=== PATIENT | female | born 1970 | race American Indian/Alaskan Native ===

== ENCOUNTER 2020-03-02 00:36 | Emergency (ER) | payer SELFPAY ==
[2020-03-02 00:49] VITALS: BP 138/91
[2020-03-02] MEDS ORDERED: oxyCODONE /ACETAMINOPHEN 5-325MG TAB PO ONE (02:27)
[2020-03-02] MEDS ORDERED: ONDANSETRON 4 MG ODT TAB PO ONE (02:27)
[2020-03-02] MEDS ORDERED: predniSONE 20 MG TAB PO ONE (02:27)
[2020-03-02] MEDS ORDERED: CLINDAMYCIN 300 MG CAP PO ONE (02:27)
--- NOTE | 2020-03-02 02:29 | Emergency Department Report ---
ED General Adult HPI - General Chief complaint: Dental/Oral Stated complaint: MOUTH ABCESS Source: patient Mode of arrival: Ambulatory Limitations: No Limitations - History of Present Illness Initial comments: Patient is a 49-year-old -[place] female with a history of hypertension, breast cancer on the right breast and fat-ivmudjq-bipzxvzfn diabetes who presents to the ED with complaint of acute onset persistent painful swollen right mandibular gingiva and severe pain on the right mandibular premolar and molar teeth for the last 5 days. Patient states that she was evaluated by her primary care physician 3 days ago and given a prescription for amoxicillin 500 mg. Patient states that she has been taking this medication but that in the last 24 hours, the pain and the swelling have worsened such that she has not been able to sleep and that the pain radiates to the right ear. Patient states that she has been taking uljv-gro-[id number] medications for pain with no relief. Patient denies dizziness, syncope, chest pain, shortness of breath, sore throat, fever, chills, nausea, or vomiting and abdominal pain. MD Complaint: right maxillary gum swelling with premolar and molar toothache; ear pain -: Sudden, days(s) (5) Location: face Radiation: non-radiation Severity scale (0 -10): 8 Quality: aching, sharp Consistency: constant Improves with: none Worsens with: eating Associated Symptoms: denies other symptoms, malaise. denies: confusion, chest pain, cough, diaphoresis, fever/chills, headaches, loss of appetite, nausea/vomiting, rash, seizure, shortness of breath, syncope, weakness Treatments Prior to Arrival: none - Related Data Previous Rx's Medication Instructions Recorded Last Taken Type Benzonatate [Tessalon Perles] 100 mg PO Q8HR #20 capsule 11/10/19 Unknown Rx Acetaminophen/Codeine [Tylenol 1 tab PO Q6H PRN #10 tab 03/02/20 Unknown Rx /Codeine # 3 tab] Clindamycin [Clindamycin CAP] 300 mg PO Q8HR #60 capsule 03/02/20 Unknown Rx Ketorolac [Toradol] 10 mg PO Q8H PRN #20 tablet 03/02/20 Unknown Rx Allergies Allergy/AdvReac Type Severity Reaction Status Date / Time No Known Allergies Allergy Unverified 11/10/19 11:23 ED Review of Systems ROS: Stated complaint: MOUTH ABCESS Other details as noted in HPI Constitutional: denies: chills, fever Eyes: denies: eye pain, eye discharge, vision change ENT: ear pain (Right ear pain), dental pain (Right mandibular premolar molar toothache with swollen gums). denies: throat pain Respiratory: denies: cough, shortness of breath, wheezing Cardiovascular: denies: chest pain, palpitations Endocrine: no symptoms reported Gastrointestinal: denies: abdominal pain, nausea, diarrhea Genitourinary: denies: urgency, dysuria, discharge Musculoskeletal: denies: back pain, joint swelling, arthralgia Skin: denies: rash, lesions Neurological: headache. denies: weakness, paresthesias Psychiatric: denies: anxiety, depression Hematological/Lymphatic: denies: easy bleeding, easy bruising ED Past Medical Hx - Past Medical History Previous Medical History?: Yes Hx Hypertension: Yes Hx Diabetes: Yes Hx of Cancer: Yes (Right breast Cancer) Additional medical history: proteinuria, breast mass - Surgical History Past Surgical History?: Yes Hx Cholecystectomy: Yes Hx Appendectomy: Yes Additional Surgical History: hysterectomy - Social History Smoking Status: Never Smoker Substance Use Type: None - Medications Home Medications: Home Medications Medication Instructions Recorded Confirmed Last Taken Type Benzonatate [Tessalon Perles] 100 mg PO Q8HR #20 capsule 11/10/19 Unknown Rx Acetaminophen/Codeine [Tylenol 1 tab PO Q6H PRN #10 tab 03/02/20 Unknown Rx /Codeine # 3 tab] Clindamycin [Clindamycin CAP] 300 mg PO Q8HR #60 capsule 03/02/20 Unknown Rx Ketorolac [Toradol] 10 mg PO Q8H PRN #20 tablet 03/02/20 Unknown Rx ED Physical Exam - General Limitations: No Limitations General appearance: alert, in no apparent distress - Head Head exam: Present: atraumatic, normocephalic, normal inspection - Eye Eye exam: Present: normal appearance, PERRL, EOMI Pupils: Present: normal accommodation - ENT ENT exam: Present: mucous membranes moist, TM's normal bilaterally, normal external ear exam, other (Swollen, severely tender right mandibular gingiva; also severely tender right mandibular premolar molar teeth) - Neck Neck exam: Present: normal inspection - Respiratory Respiratory exam: Present: normal lung sounds bilaterally. Absent: respiratory distress, wheezes, rales, rhonchi, chest wall tenderness, accessory muscle use, decreased breath sounds, prolonged expiratory - Cardiovascular Cardiovascular Exam: Present: regular rate, normal rhythm, normal heart sounds. Absent: systolic murmur, diastolic murmur, rubs, gallop - GI/Abdominal GI/Abdominal exam: Present: soft, normal bowel sounds. Absent: tenderness, guarding, hyperactive bowel sounds, hypoactive bowel sounds - Extremities Exam Extremities exam: Present: normal inspection, full ROM, normal capillary refill - Back Exam Back exam: Present: normal inspection, full ROM. Absent: tenderness, CVA tenderness (R), muscle spasm, paraspinal tenderness, vertebral tenderness - Neurological Exam Neurological exam: Present: alert, oriented X3, CN II-XII intact, normal gait, reflexes normal - Psychiatric Psychiatric exam: Present: normal affect, normal mood - Skin Skin exam: Present: warm, dry, intact, normal color. Absent: rash ED Course Vital Signs 03/02/20 00:42 Temperature 98.1 F Pulse Rate 92 H Respiratory 20 Rate Blood Pressure 138/91 O2 Sat by Pulse 99 Oximetry ED Medical Decision Making - Medical Decision Making This is a 49-year-old -[place] female with a history of hypertension, breast cancer on the right breast and mqs-fddwzhm-iitfqneog diabetes who prese nts to the ED with complaint of acute onset persistent painful swollen right mandibular gingiva and severe pain on the right mandibular premolar and molar teeth for the last 5 days. Patient states that she was evaluated by her primary care physician 3 days ago and given a prescription for amoxicillin 500 mg. Patient states that she has been taking this medication but that in the last 24 hours, the pain and the swelling have worsened such that she has not been able to sleep and that the pain radiates to the right ear. Patient states that she has been taking fnfi-[id number]-[id number] medications for pain with no relief. In the ED, patient is alert and oriented x3 and is not in distress but appears to be in significant pain. Patient was treated for pain in the ED and also given initial oral antibiotics in the ED. On reevaluation, patient's pain is well controlled with medications. Patient was discharged home on pain medications and oral antibiotics and advised to stop the amoxicillin that she had been taking and to start taking clindamycin the new instructions. Patient was advised to follow-up with her dentist and primary care physician in 7 to 10 days for reevaluation or return to the ED immediately if symptoms get worse. - Differential Diagnosis dental abscess; dental caries; gingivitis; Otitis media Critical care attestation.: If time is entered above; I have spent that time in minutes in the direct care of this critically ill patient, excluding procedure time. ED Disposition Clinical Impression: Acute gingivitis, Abscess, dental, Dental caries Disposition: TO HOME OR SELFCARE Is pt being admited?: No Does the pt Need Aspirin: No Condition: Stable Instructions: Dental Abscess (ED), Dental Caries (ED), Gingivitis (ED) Additional Instructions: Take medication with food, drink plenty of fluids and follow-up with your primary care physician in 7 to 10 days for reevaluation. Return to the ED immediately if symptoms get worse. Ensure that you follow-up with your dentist in 7 to 10 days as well. Prescriptions: Clindamycin [Clindamycin CAP] 300 mg PO Q8HR #60 capsule Ketorolac [Toradol] 10 mg PO Q8H PRN #20 tablet PRN Reason: Pain Acetaminophen/Codeine [Tylenol /Codeine # 3 tab] 1 tab PO Q6H PRN #10 tab PRN Reason: Pain , Severe (7-10) Referrals: [facility] [Outside] - 3-5 Days [facility] [Outside] - 3-5 Days Time of Disposition: 02:30 Print Language: MONTSERRATIAN
== END 2020-03-02 02:40 | disposition home or self-care (01) ==
LOC: ED 00:36
DX: K05.00 Acute gingivitis, plaque induced (principal); K02.9 Dental caries, unspecified; K04.7 Periapical abscess without sinus; I10 Essential (primary) hypertension; E11.9 Type 2 diabetes mellitus without complications; Z90.710 Acquired absence of both cervix and uterus; Z90.49 Acquired absence of other specified parts of digestive tract
CPT/HCPCS: 99282; J7512; Q0162

== ENCOUNTER 2020-05-04 03:39 | Emergency (ER) | payer MEDICAID ==
[2020-05-04] MEDS ORDERED: ASPIRIN 325 MG TAB PO ONE (04:03)
[2020-05-04] MEDS ORDERED: MORPHINE 4 MG/1 ML INJ IV ONE (04:50)
[2020-05-04] MEDS ORDERED: SODIUM CHLORIDE 0.9% 500 ML 500 ML IV ONE (04:50)
--- NOTE | 2020-05-04 04:52 | Event Note ---
Date: 05/04/20 Medical screening note: 50-year-old female, with a history of newly diagnosed breast cancer, follows at [place], supposed to start chemotherapy tomorrow, May 05, known metastatic disease, recently had a left thoracic port placed this past Tuesday, at [place], also reports a history of cholecystectomy, appendectomy, hysterectomy, medical history of hypertension and diabetes, resenting to the ER today with a complaint of nontraumatic right chest pain, neck pain, back pain, and sinus drainage. Check basic labs, EKG, x-ray of the neck, x-ray of the chest, give pain control, reassess. Vital Signs 05/04/20 03:57 Temperature 98.0 F Pulse Rate 101 H Respiratory 18 Rate Blood Pressure 155/94 O2 Sat by Pulse 99 Oximetry
--- NOTE | 2020-05-04 05:38 | XRay Report ---
CHEST 2 VIEWS INDICATION: cp. COMPARISON: 11/10/2019 FINDINGS: Support devices: Chest port in satisfactory position. Heart: Within normal limits. Lungs/Pleura: No acute air space or interstitial disease. No significant pleural effusion. IMPRESSION: No acute findings. Signer Name: Aren Khoury MD Signed: 05/04/2020 5:34 AM Workstation Name: [id number]
--- NOTE | 2020-05-04 05:40 | XRay Report ---
SOFT TISSUE NECK HISTORY: Neck pain. FINDINGS: Negative for prevertebral soft tissue swelling or significant soft tissue abnormality. Evaluation the bones demonstrates mild degenerative disc disease greatest at C5-C6. Signer Name: Aren Khoury MD Signed: 05/04/2020 5:35 AM Workstation Name: [id number]
[2020-05-04 06:22] LABS: Basophils # (Auto) 0.1 K/mm3 (0.0-0.1); Basophils % (Auto) 1.1 % (0.0-1.8); Eosinophils # (Auto) 0.3 K/mm3 (0.0-0.4); Eosinophils % (Auto) 4.3 % (0.0-4.3); Hematocrit 41.4 % (30.3-42.9); Hemoglobin 13.5 gm/dl (10.1-14.3); Lymphocytes % (Auto) 30.8 % (13.4-35.0); Mean Corpuscular HGB Conc 33 % (30-34); Mean Corpuscular Volume 84 fl (79-97); Monocytes # (Auto) 0.9 K/mm3 (0.0-0.8); Monocytes % (Auto) 13.5 % (0.0-7.3); Platelet Count 292 K/mm3 (140-440); Red Blood Count 4.92 M/mm3 (3.65-5.03); Red Cell Distribution Width 13.9 % (13.2-15.2)
[2020-05-04 06:42] LABS: BUN/Creatinine Ratio 18; Blood Urea Nitrogen 11 mg/dL (7-17); Calcium 9.6 mg/dL (8.4-10.2); Hemolysis Index 25
[2020-05-04 06:45] LABS: INR 0.99 (0.87-1.13)
[2020-05-04] MEDS ORDERED: ONDANSETRON 4 MG/2 ML INJ IV ONE (06:45)
[2020-05-04] MEDS ORDERED: MORPHINE 2 MG/1 ML INJ IV ONE (06:45)
--- NOTE | 2020-05-04 06:47 | Emergency Department Report ---
ED Chest Pain HPI - General Chief Complaint: Chest Pain Stated Complaint: CHEST/BACK PAIN/THROAT/EAR PAIN Time Seen by Provider: 05/04/20 06:26 Source: patient Mode of arrival: Ambulatory Limitations: No Limitations - History of Present Illness Initial Comments: 50-year-old female with a history of right breast cancer and recently placed port/1 round of chemotherapy, reports the onset of pleuritic chest pain yesterday which was gradual. She denies cough, fever and shortness of breath. She thinks that the illness began with sinus drainage which was bothering her throat. Chest pain seems to radiate to her throat and to her right upper back. She states that she has not had pain like this before. She has had no recent travel. She denies a family history or personal history of VTE. She does not complain of leg pain or swelling. She cannot describe the quality of the chest pain but states it is constant. MD Complaint: chest pain -: Gradual, hour(s) Onset: during rest Pain Location: right chest Pain Radiation: back Severity: moderate Severity scale (0 -10): 7 Quality: other (Would not describe) Consistency: constant Improves With: nothing Worsens With: nothing Context: other (Recent port placement) re: denies: nausea, vomting, diaphoresis Other Symptoms: denies: cough, fever, syncope Treatments Prior to Arrival: none - Related Data Previous Rx's Medication Instructions Recorded Last Taken Type Benzonatate [Tessalon Perles] 100 mg PO Q8HR #20 capsule 11/10/19 Unknown Rx Acetaminophen/Codeine [Tylenol 1 tab PO Q6H PRN #10 tab 03/02/20 Unknown Rx /Codeine # 3 tab] Clindamycin [Clindamycin CAP] 300 mg PO Q8HR #60 capsule 03/02/20 Unknown Rx Ketorolac [Toradol] 10 mg PO Q8H PRN #20 tablet 03/02/20 Unknown Rx Azithromycin 500 mg PO DAILY #1 pkg 05/04/20 Unknown Rx traMADoL [Ultram 50 MG tab] 50 mg PO Q6HR PRN #14 tablet 05/04/20 Unknown Rx Allergies Allergy/AdvReac Type Severity Reaction Status Date / Time No Known Allergies Allergy Verified 05/04/20 06:28 Heart Score - HEART Score History: Slightly suspicious EKG: Normal Age: 45-65 Risk factors: 1-2 risk factors Troponin: < normal limit HEART Score: 2 - Critical Actions Critical Actions: 0-3 pts:0.9-1.7%risk of adverse cardiac event.Candidate for discharge ED Review of Systems ROS: Stated complaint: CHEST/BACK PAIN/THROAT/EAR PAIN Other details as noted in HPI Constitutional: denies: chills, fever Eyes: denies: eye pain, eye discharge, vision change ENT: as per HPI, throat pain, congestion. denies: ear pain Respiratory: denies: cough, shortness of breath, wheezing Cardiovascular: as per HPI, chest pain. denies: palpitations Endocrine: no symptoms reported Gastrointestinal: denies: abdominal pain, nausea, diarrhea Genitourinary: denies: urgency, dysuria, discharge Musculoskeletal: as per HPI, back pain. denies: joint swelling, arthralgia Skin: denies: rash, lesions Neurological: denies: headache, weakness, paresthesias Psychiatric: denies: anxiety, depression Hematological/Lymphatic: denies: easy bleeding, easy bruising ED Past Medical Hx - Past Medical History Previous Medical History?: Yes Hx Hypertension: Yes Hx Diabetes: Yes Hx of Cancer: Yes (Right breast cancer) Additional medical history: proteinuria, breast mass - Surgical History Past Surgical History?: Yes Hx Cholecystectomy: Yes Hx Appendectomy: Yes Additional Surgical History: hysterectomy, , Port-a-cath left chest - Social History Smoking Status: Never Smoker Substance Use Type: None - Medications Home Medications: Home Medications Medication Instructions Recorded Confirmed Last Taken Type Benzonatate [Tessalon Perles] 100 mg PO Q8HR #20 capsule 11/10/19 Unknown Rx Acetaminophen/Codeine [Tylenol 1 tab PO Q6H PRN #10 tab 03/02/20 Unknown Rx /Codeine # 3 tab] Clindamycin [Clindamycin CAP] 300 mg PO Q8HR #60 capsule 03/02/20 Unknown Rx Ketorolac [Toradol] 10 mg PO Q8H PRN #20 tablet 03/02/20 Unknown Rx Azithromycin 500 mg PO DAILY #1 pkg 05/04/20 Unknown Rx traMADoL [Ultram 50 MG tab] 50 mg PO Q6HR PRN #14 tablet 05/04/20 Unknown Rx ED Physical Exam - General Limitations: No Limitations General appearance: alert, in no apparent distress - Head Head exam: Present: atraumatic, normocephalic - Eye Eye exam: Present: normal appearance. Absent: scleral icterus - ENT ENT exam: Present: mucous membranes moist - Neck Neck exam: Present: normal inspection - Respiratory Respiratory exam: Present: normal lung sounds bilaterally, other (Port site noted left). Absent: respiratory distress, chest wall tenderness - Cardiovascular Cardiovascular Exam: Present: regular rate, normal rhythm. Absent: systolic murmur, diastolic murmur, rubs, gallop - GI/Abdominal GI/Abdominal exam: Present: soft, normal bowel sounds. Absent: distended, tenderness, guarding, rebound, rigid - Extremities Exam Extremities exam: Present: normal inspection. Absent: pedal edema, joint swe lling, calf tenderness - Back Exam Back exam: Present: normal inspection - Neurological Exam Neurological exam: Present: alert, oriented X3, CN II-XII intact. Absent: motor sensory deficit - Psychiatric Psychiatric exam: Present: normal affect, normal mood - Skin Skin exam: Present: warm, dry, intact, normal color. Absent: rash ED Course Vital Signs 05/04/20 05/04/20 05/04/20 03:57 04:53 04:55 Temperature 98.0 F Pulse Rate 101 H 91 H 86 Respiratory 18 18 18 Rate Blood Pressure 155/94 Blood Pressure 138/81 [Left] O2 Sat by Pulse 99 99 99 Oximetry 05/04/20 05/04/20 05/04/20 05:01 06:01 07:00 Temperature Pulse Rate 83 79 83 Respiratory 16 16 14 Rate Blood Pressure 138/81 143/86 144/83 Blood Pressure [Left] O2 Sat by Pulse 99 96 98 Oximetry 05/04/20 05/04/20 08:00 09:30 Temperature 98.4 F Pulse Rate 87 87 Respiratory 18 13 Rate Blood Pressure 152/88 141/87 Blood Pressure [Left] O2 Sat by Pulse 97 99 Oximetry EZRA score - Ezra Score Age > 65: (0) No Aspirin use within the Past 7 Days: (0) No 3 or more CAD Risk Factors: (0) No 2 or more Angina events in past 24 hrs: (0) No Known CAD with more than 50% Stenosis: (0) No Elevated Cardiac Markers: (0) No ST Deviation Greater than 0.5mm: (0) No EZRA Score: 0 ED Medical Decision Making - Lab Data Result diagrams: 05/04/20 04:04 05/04/20 04:04 Laboratory Results - last 24 hr 05/04/20 05/04/20 05/04/20 04:04 04:04 05:55 WBC 6.5 RBC 4.92 Hgb 13.5 Hct 41.4 MCV 84 MCH 28 MCHC 33 RDW 13.9 Plt Count 292 Lymph % (Auto) 30.8 [place] % (Auto) 13.5 H Eos % (Auto) 4.3 Baso % (Auto) 1.1 Lymph # 2.0 [place] # 0.9 H Eos # 0.3 Baso # 0.1 Seg Neutrophils % 50.3 Seg Neutrophils # 3.3 PT 13.2 INR 0.99 Sodium 140 Potassium 4.3 Chloride 100.5 Carbon Dioxide 23 Anion Gap 21 BUN 11 Creatinine 0.6 Estimated GFR > 60 BUN/Creatinine Ratio 18 Glucose 140 H Calcium 9.6 Magnesium Total Creatine Kinase Troponin T < 0.010 05/04/20 05:55 WBC RBC Hgb Hct MCV MCH MCHC RDW Plt Count Lymph % (Auto) [place] % (Auto) Eos % (Auto) Baso % (Auto) Lymph # [place] # Eos # Baso # Seg Neutrophils % Seg Neutrophils # PT INR Sodium Potassium Chloride Carbon Dioxide Anion Gap BUN Creatinine Estimated GFR BUN/Creatinine Ratio Glucose Calcium Magnesium 1.70 Total Creatine Kinase 44 Troponin T Laboratory Results - last 24 hr 05/04/20 05/04/20 05/04/20 04:04 04:04 05:55 WBC 6.5 RBC 4.92 Hgb 13.5 Hct 41.4 MCV 84 MCH 28 MCHC 33 RDW 13.9 Plt Count 292 Lymph % (Auto) 30.8 [place] % (Auto) 13.5 H Eos % (Auto) 4.3 Baso % (Auto) 1.1 Lymph # 2.0 [place] # 0.9 H Eos # 0.3 Baso # 0.1 Seg Neutrophils % 50.3 Seg Neutrophils # 3.3 PT 13.2 INR 0.99 Sodium 140 Potassium 4.3 Chloride 100.5 Carbon Dioxide 23 Anion Gap 21 BUN 11 Creatinine 0.6 Estimated GFR > 60 BUN/Creatinine Ratio 18 Glucose 140 H Calcium 9.6 Magnesium Total Creatine Kinase Troponin T < 0.010 05/04/20 05/04/20 05:55 06:47 WBC RBC Hgb Hct MCV MCH MCHC RDW Plt Count Lymph % (Auto) [place] % (Auto) Eos % (Auto) Baso % (Auto) Lymph # [place] # Eos # Baso # Seg Neutrophils % Seg Neutrophils # PT INR Sodium Potassium Chloride Carbon Dioxide Anion Gap BUN Creatinine Estimated GFR BUN/Creatinine Ratio Glucose Calcium Magnesium 1.70 Total Creatine Kinase 44 Troponin T < 0.010 Laboratory Results - last 24 hr 05/04/20 05/04/20 05/04/20 04:04 04:04 05:55 WBC 6.5 RBC 4.92 Hgb 13.5 Hct 41.4 MCV 84 MCH 28 MCHC 33 RDW 13.9 Plt Count 292 Lymph % (Auto) 30.8 [place] % (Auto) 13.5 H Eos % (Auto) 4.3 Baso % (Auto) 1.1 Lymph # 2.0 [place] # 0.9 H Eos # 0.3 Baso # 0.1 Seg Neutrophils % 50.3 Seg Neutrophils # 3.3 PT 13.2 INR 0.99 Sodium 140 Potassium 4.3 Chloride 100.5 Carbon Dioxide 23 Anion Gap 21 BUN 11 Creatinine 0.6 Estimated GFR > 60 BUN/Creatinine Ratio 18 Glucose 140 H Calcium 9.6 Magnesium Total Creatine Kinase Troponin T < 0.010 05/04/20 05/04/20 05:55 06:47 WBC RBC Hgb Hct MCV MCH MCHC RDW Plt Count Lymph % (Auto) [place] % (Auto) Eos % (Auto) Baso % (Auto) Lymph # [place] # Eos # Baso # Seg Neutrophils % Seg Neutrophils # PT INR Sodium Potassium Chloride Carbon Dioxide Anion Gap BUN Creatinine Estimated GFR BUN/Creatinine Ratio Glucose Calcium Magnesium 1.70 Total Creatine Kinase 44 Troponin T < 0.010 - EKG Data -: EKG Interpreted by Nm EKG shows normal: sinus rhythm Rate: normal - EKG Data Interpretation: other (Tiny Inferolateral cues which are likely to be nonspecific. Otherwise essentially normal EKG) - Radiology Data Radiology results: report reviewed CT ANGIOGRAPHY OF THE CHEST WITH INTRAVENOUS CONTRAST AND MULTIPLANAR MIP RECONSTRUCTIONS INDICATION / CLINICAL INFORMATION: Chest pain starting yesterday. History of breast cancer. TECHNIQUE: Axial CT images were obtained after injection of 100 cc Omnipaque 350 IV contrast using CTA protocol. 3 plane MIP / 3D reconstructions were produced. All CT scans at this location are performed using CT dose reduction for ALARA by means of automated exposure control. COMPARISON: None available. FINDINGS: There is a left jugular Port-A-Cath with the tip overlying the upper cavoatrial junction. There is good opacification of the pulmonary arterial system bilaterally without intraluminal filling defect to suggest acute PTE. The thoracic aorta is normal in caliber without dissection. No coronary artery calcification is seen. The tracheobronchial tree is normal. There is mild bibasilar dependent atelectasis. The lungs are otherwise clear. There is no evidence of mediastinal or hilar adenopathy. No pleural or pericardial effusion is seen. There is a 3.6 cm mass in the right lateral breast. There are multiple enlarged right axillary lymph nodes, the largest of which measures approximately 3.4 cm short axis. The gallbladder is surgically absent. There is a subcentimeter simple left renal cyst. No other abnormality is seen in the visualized upper abdomen. There is mild thoracic spondylosis. I see no evidence of osseous metastatic disease. IMPRESSION: 1. No evidence of acute PTE. 2. Right breast mass and metastatic lymphadenopathy in the right axilla are consistent with patient's known right breast cancer. Signer Name: Kin Aguirre MD Critical care attestation.: If time is entered above; I have spent that time in minutes in the direct care of this critically ill patient, excluding procedure time. ED Disposition Clinical Impression: Right-sided chest pain Carcinoma of right breast Qualifiers: Breast location: unspecified site of breast Estrogen receptor status: unspecified Patient sex: female Qualified Code(s): C50.911 - Malignant neoplasm of unspecified site of right female breast Acute bronchitis Qualifiers: Bronchitis organism: unspecified organism Qualified Code(s): J20.9 - Acute bronchitis, unspecified Diabetes Qualifiers: Diabetes mellitus type: type 2 Diabetes mellitus rn long term care insulin use: unspecified rn long term care insulin use status Diabetes mellitus complication status: without complication Qualified Code(s): E11.9 - Type 2 diabetes mellitus without complications Disposition: DC- TO HOME OR SELFCARE Is pt being admited?: No Does the pt Need Aspirin: No Condition: Stable Instructions: Chest Pain (ED), Acute Bronchitis (ED), Diabetes Mellitus Type 2 in Adults (ED) Additional Instructions: Follow-up with your primary care physician and oncologist. Return any acute change or problem. If you have any persistent symptoms, perhaps coronavirus screening would be indicated. Return to the emergency department any acute change or problem. Rx as directed. Prescriptions: Azithromycin 500 mg PO DAILY #1 pkg traMADoL [Ultram 50 MG tab] 50 mg PO Q6HR PRN #14 tablet PRN Reason: Pain Referrals: Usual, oncologist [Other] - 3-5 Days PRIMARY CARE,MD [Primary Care Provider] - 2-3 Days Time of Disposition: 10:20
--- NOTE | 2020-05-04 08:14 | Cat Scan Report ---
CT ANGIOGRAPHY OF THE CHEST WITH INTRAVENOUS CONTRAST AND MULTIPLANAR MIP RECONSTRUCTIONS INDICATION / CLINICAL INFORMATION: Chest pain starting yesterday. History of breast cancer. TECHNIQUE: Axial CT images were obtained after injection of 100 cc Omnipaque 350 IV contrast using CTA protocol. 3 plane MIP / 3D reconstructions were produced. All CT scans at this location are performed using CT dose reduction for ALARA by means of automated exposure control. COMPARISON: None available. FINDINGS: There is a left jugular Port-A-Cath with the tip overlying the upper cavoatrial junction. There is go od opacification of the pulmonary arterial system bilaterally without intraluminal filling defect to suggest acute PTE. The thoracic aorta is normal in caliber without dissection. No coronary artery estefania cification is seen. The tracheobronchial tree is normal. There is mild bibasilar dependent atelectasis. The lungs are oth erwise clear. There is no evidence of mediastinal or hilar adenopathy. No pleural or pericardial effu lilian is seen. There is a 3.6 cm mass in the right lateral breast. There are multiple enlarged right axillary lymph nodes, the largest of which measures approximately 3.4 cm short axis. The gallbladder is surgically a bsent. There is a subcentimeter simple left renal cyst. No other abnormality is seen in the visualize d upper abdomen. There is mild thoracic spondylosis. I see no evidence of osseous metastatic disease. IMPRESSION: 1. No evidence of acute PTE. 2. Right breast mass and metastatic lymphadenopathy in the right axilla are consistent with patient's known right breast cancer. Signer Name: Kin Aguirre MD Signed: 05/04/2020 8:10 AM Workstation Name: [id number]
[2020-05-04 10:36] VITALS: BP 133/83
== END 2020-05-04 10:44 | disposition home or self-care (01) ==
LOC: ED 03:39
DX: C50.911 Malignant neoplasm of unspecified site of right female breast (principal); J20.9 Acute bronchitis, unspecified; E11.9 Type 2 diabetes mellitus without complications; R07.89 Other chest pain; I10 Essential (primary) hypertension; Z90.710 Acquired absence of both cervix and uterus; Z79.899 Other long term (current) drug therapy; Z98.890 Other specified postprocedural states; Z90.49 Acquired absence of other specified parts of digestive tract
CPT/HCPCS: 36415; 70360; 71046; 71275; 80048; 82550; 83735; 84484; 85025; 85610; 93005; 96374; 96375; 96376; 99285; J2270; J2405; J7040; Q9967

== ENCOUNTER 2020-06-11 16:44 | Observation (INO) | payer MEDICAID ==
[2020-06-11] MEDS ORDERED: ASPIRIN 325 MG TAB PO ONE (17:05)
--- NOTE | 2020-06-11 17:35 | XRay Report ---
CHEST 2 VIEWS INDICATION / CLINICAL INFORMATION: Chest Pain. COMPARISON: 05/04/2020. FINDINGS: SUPPORT DEVICES: The position of the left jugular CVL has not changed with the tip overlying the uppe r cavoatrial junction. HEART / MEDIASTINUM: The heart size and pulmonary vasculature are normal. The aorta is normal in brando dasha. LUNGS / PLEURA: No significant pulmonary or pleural abnormality. No pneumothorax. ADDITIONAL FINDINGS: No significant additional findings. IMPRESSION: No acute abnormality or significant change. Signer Name: Kin Aguirre MD Signed: 06/11/2020 5:31 PM Workstation Name: [id number]
[2020-06-11 17:41] LABS: Hematocrit 37.9 % (30.3-42.9); Hemoglobin 12.6 gm/dl (10.1-14.3); Mean Corpuscular HGB Conc 33 % (30-34); Mean Corpuscular Volume 82 fl (79-97); Platelet Count 299 K/mm3 (140-440); Red Blood Count 4.62 M/mm3 (3.65-5.03); Red Cell Distribution Width 13.7 % (13.2-15.2)
[2020-06-11 17:49] LABS: INR 0.91 (0.87-1.13); Partial Thromboplastin Time 26.5 Sec. (24.2-36.6)
[2020-06-11 17:57] LABS: Blood Urea Nitrogen 14 mg/dL (7-17); Calcium 9.7 mg/dL (8.4-10.2); Hemolysis Index 9
[2020-06-11 18:00] LABS: BUN/Creatinine Ratio 23
[2020-06-11 18:23] LABS: Band Neutrophils # (Manual) 0.9 K/mm3; Eosinophils % (Manual) 0 % (0.0-4.3); Total Cells Counted 100
[2020-06-11 18:24] LABS: Ovalocytes Rare; Tear Drop Cells Rare
[2020-06-11 18:25] LABS: Platelet Estimate Consistent w Auto
[2020-06-11] MEDS ORDERED: SODIUM CHLORIDE 0.9% 1000 ML 1,000 ML IV ONE (20:32)
[2020-06-11] MEDS ORDERED: FAMOTIDINE 20 MG/2 ML INJ IV ONE (20:32)
[2020-06-11] MEDS ORDERED: MORPHINE 4 MG/1 ML INJ IV ONE (20:34)
--- NOTE | 2020-06-11 20:51 | Emergency Department Report ---
ED Chest Pain HPI - General Chief Complaint: Chest Pain Stated Complaint: CHEST PAIN, SOB, WEAKNESS Time Seen by Provider: 06/11/20 20:15 Source: patient Mode of arrival: Wheelchair Limitations: No Limitations - History of Present Illness Initial Comments: 50-year-old female with a past medical history of metastatic breast cancer currently receiving chemotherapy at [facility], hypertension, diabetes, previous cholecystectomy, hysterectomy, and appendectomy presents to the hospital complaints of pain with swallowing for 3 days and chest pain that started at 4 PM this afternoon. Patient received her third round of chemotherapy last Tuesday the and typically receives chemotherapy every 2 weeks. Last 3 days she complains of decreased p.o. intake due to pain with swallowing liquids and food as well as feeling bloated and full with early satiety. She denies a sensation of food getting stuck in her esophagus. She is unable to characterize the pain. Today after eating she had both substernal chest pain and shortness of breath with a tightness in her chest. Patient came to the ER immediately and states that pain lasted approximately 2 hours before resolving. She denies history of GERD, peptic ulcer disease, esophageal problems, or CAD. She also denies recent travel, history of PE/DVT, calf tenderness, or leg edema. She complains of na usea without vomiting, melena, or hematochezia. Patient cannot recall the name of her chemotherapy drugs. Severity scale (0 -10): 5 - Related Data Previous Rx's Medication Instructions Recorded Last Taken Type Benzonatate [Tessalon Perles] 100 mg PO Q8HR #20 capsule 11/10/19 Unknown Rx Acetaminophen/Codeine [Tylenol 1 tab PO Q6H PRN #10 tab 03/02/20 Unknown Rx /Codeine # 3 tab] Clindamycin [Clindamycin CAP] 300 mg PO Q8HR #60 capsule 03/02/20 Unknown Rx Ketorolac [Toradol] 10 mg PO Q8H PRN #20 tablet 03/02/20 Unknown Rx Azithromycin 500 mg PO DAILY #1 pkg 05/04/20 Unknown Rx traMADoL [Ultram 50 MG tab] 50 mg PO Q6HR PRN #14 tablet 05/04/20 Unknown Rx Allergies Allergy/AdvReac Type Severity Reaction Status Date / Time No Known Allergies Allergy Verified 05/04/20 06:28 Heart Score - HEART Score History: Slightly suspicious EKG: Normal Age: 45-65 Risk factors: > 3 risk factors or hx of atherosclerotic disease Troponin: < normal limit HEART Score: 3 ED Review of Systems ROS: Stated complaint: CHEST PAIN, SOB, WEAKNESS Other details as noted in HPI Comment: All other systems reviewed and negative ED Past Medical Hx - Past Medical History Previous Medical History?: Yes Hx Hypertension: Yes Hx Diabetes: Yes Additional medical history: proteinuria, breast mass - Surgical History Past Surgical History?: Yes Hx Cholecystectomy: Yes Hx Appendectomy: Yes Additional Surgical History: hysterectomy, , Port-a-cath left chest - Social History Smoking Status: Never Smoker Substance Use Type: None - Medications Home Medications: Home Medications Medication Instructions Recorded Confirmed Last Taken Type Benzonatate [Tessalon Perles] 100 mg PO Q8HR #20 capsule 11/10/19 Unknown Rx Acetaminophen/Codeine [Tylenol 1 tab PO Q6H PRN #10 tab 03/02/20 Unknown Rx /Codeine # 3 tab] Clindamycin [Clindamycin CAP] 300 mg PO Q8HR #60 capsule 03/02/20 Unknown Rx Ketorolac [Toradol] 10 mg PO Q8H PRN #20 tablet 03/02/20 Unknown Rx Azithromycin 500 mg PO DAILY #1 pkg 05/04/20 Unknown Rx traMADoL [Ultram 50 MG tab] 50 mg PO Q6HR PRN #14 tablet 05/04/20 Unknown Rx ED Physical Exam - General Limitations: No Limitations - Other Other exam information: General: No acute distress Head: Atraumatic Eyes: normal appearance ENT: Moist mucous membranes, black tongue discoloration (since chemo started as per pt),no thrush Neck: Normal appearance, no midline tenderness Chest: Clear to auscultation bilaterally CV: Regular rate and rhythm Abdomen: Soft, normal bowel sounds, nontender, nondistended, no rebound or guarding Back: Normal inspection Extremity: Normal inspection, full range of motion, no calf tenderness or leg edema Neuro: Alert O x 3, no facial asymmetry, speech clear, no gross motor sensory de ficit Psych: Appropriate behavior Skin: No rash ED Course Vital Signs 06/11/20 06/11/20 17:02 19:33 Temperature 98.2 F Pulse Rate 96 H 88 Respiratory 22 16 Rate Blood Pressure 156/93 Blood Pressure 140/79 [Left] O2 Sat by Pulse 100 100 Oximetry - Reevaluation(s) Reevaluation #1: 06/11/20 22:13 pt reports she is feeling better with ed treatment - Consultations Consultation #1: 06/11/20 22:05 Case discussed with on-call GI doctor Dr. Cowart who advises admission for endoscopy and further evaluation JAIRO score - Jairo Score Age > 65: (0) No Aspirin use within the Past 7 Days: (0) No 3 or more CAD Risk Factors: (0) No 2 or more Angina events in past 24 hrs: (0) No Known CAD with more than 50% Stenosis: (0) No Elevated Cardiac Markers: (0) No ST Deviation Greater than 0.5mm: (0) No JAIRO Score: 0 ED Medical Decision Making - Lab Data Result diagrams: 06/11/20 17:10 06/11/20 17:10 Lab Results 06/11/20 06/11/20 06/11/20 Range/Units 17:10 17:10 17:10 WBC 12.9 H (4.5-11.0) K/mm3 RBC 4.62 (3.65-5.03) M/mm3 Hgb 12.6 (10.1-14.3) gm/dl Hct 37.9 (30.3-42.9) % MCV 82 (79-97) fl MCH 27 L (28-32) pg MCHC 33 (30-34) % RDW 13.7 (13.2-15.2) % Plt Count 299 (140-440) K/mm3 [place] % (Auto) [employer] Floor[employer] Add Manual Diff Complete Total Counted 100 Seg Neuts % (Manual) 67.0 (40.0-70.0) % Band Neutrophils % 7.0 % Lymphocytes % (Manual) 10.0 L (13.4-35.0) % Reactive Lymphs % (Man) 0 % Monocytes % (Manual) 13.0 H (0.0-7.3) % Eosinophils % (Manual) 0 (0.0-4.3) % Basophils % (Manual) 1.0 (0.0-1.8) % Metamyelocytes % 2.0 % Myelocytes % 0 % Promyelocytes % 0 % Blast Cells % 0 % Nucleated RBC % Not Reportable Seg Neutrophils # Man 8.6 H (1.8-7.7) K/mm3 Band Neutrophils # 0.9 K/mm3 Lymphocytes # (Manual) 1.3 (1.2-5.4) K/mm3 Abs React Lymphs (Man) 0.0 K/mm3 Monocytes # (Manual) 1.7 H (0.0-0.8) K/mm3 Eosinophils # (Manual) 0.0 (0.0-0.4) K/mm3 Basophils # (Manual) 0.1 (0.0-0.1) K/mm3 Metamyelocytes # 0.3 K/mm3 Myelocytes # 0.0 K/mm3 Promyelocytes # 0.0 K/mm3 Blast Cells # 0.0 K/mm3 WBC Morphology Not Reportable Hypersegmented Neuts Not Reportable Hyposegmented Neuts Not Reportable Hypogranular Neuts Not Reportable Smudge Cells Not Reportable Toxic Granulation Not Reportable Toxic Vacuolation Not Reportable Dohle Bodies Not Reportable Pelger-Huet Anomaly Not Reportable Khuhsbu Rods Not Reportable Platelet Estimate Consistent w auto Clumped Platelets Not Reportable Plt Clumps, EDTA Not Reportable Large Platelets Not Reportable Giant Platelets Not Reportable Platelet Satelliting Not Reportable Plt Morphology Comment Not Reportable RBC Morphology Not Reportable Dimorphic RBCs Not Reportable Polychromasia Not Reportable Hypochromasia Not Reportable Poikilocytosis Not Reportable Anisocytosis Not Reportable Microcytosis Not Reportable Macrocytosis Not Reportable Spherocytes Not Reportable Pappenheimer Bodies Not Reportable Sickle Cells Not Reportable Target Cells Not Reportable Tear Drop Cells Rare Ovalocytes Rare Helmet Cells Not Reportable [place] Bodies Not Reportable [place] Rings Not Reportable [place] Cells Not Reportable Bite Cells Not Reportable Crenated Cell Not Reportable Elliptocytes Not Reportable Acanthocytes (Spur) Not Reportable Rouleaux Not Reportable Hemoglobin C Crystals Not Reportable Schistocytes Not Reportable Malaria parasites Not Reportable Johnny Bodies Not Reportable Hem Pathologist Commnt No PT 12.4 (12.2-14.9) Sec. INR 0.91 (0.87-1.13) APTT 26.5 (24.2-36.6) Sec. Sodium 137 (137-145) mmol/L Potassium 3.3 L (3.6-5.0) mmol/L Chloride 97.7 L (98-107) mmol/L Carbon Dioxide 23 (22-30) mmol/L Anion Gap 20 mmol/L BUN 14 (7-17) mg/dL Creatinine 0.6 (0.6-1.2) mg/dL Estimated GFR > 60 ml/min BUN/Creatinine Ratio 23 % Glucose 114 H (65-100) mg/dL Calcium 9.7 (8.4-10.2) mg/dL Magnesium (1.7-2.3) mg/dL Troponin T < 0.010 (0.00-0.029) ng/mL 06/11/20 06/11/20 Range/Units 20:03 20:03 WBC (4.5-11.0) K/mm3 RBC (3.65-5.03) M/mm3 Hgb (10.1-14.3) gm/dl Hct (30.3-42.9) % MCV (79-97) fl MCH (28-32) pg MCHC (30-34) % RDW (13.2-15.2) % Plt Count (140-440) K/mm3 [place] % (Auto) Add Manual Diff Total Counted Seg Neuts % (Manual) (40.0-70.0) % Band Neutrophils % % Lymphocytes % (Manual) (13.4-35.0) % Reactive Lymphs % (Man) % Monocytes % (Manual) (0.0-7.3) % Eosinophils % (Manual) (0.0-4.3) % Basophils % (Manual) (0.0-1.8) % Metamyelocytes % % Myelocytes % % Promyelocytes % % Blast Cells % % Nucleated RBC % Seg Neutrophils # Man (1.8-7.7) K/mm3 Band Neutrophils # K/mm3 Lymphocytes # (Manual) (1.2-5.4) K/mm3 Abs React Lymphs (Man) K/mm3 Monocytes # (Manual) (0.0-0.8) K/mm3 Eosinophils # (Manual) (0.0-0.4) K/mm3 Basophils # (Manual) (0.0-0.1) K/mm3 Metamyelocytes # K/mm3 Myelocytes # K/mm3 Promyelocytes # K/mm3 Blast Cells # K/mm3 WBC Morphology Hypersegmented Neuts Hyposegmented Neuts Hypogranular Neuts Smudge Cells Toxic Granulation Toxic Vacuolation Dohle Bodies Pelger-Huet Anomaly Khushbu Rods Platelet Estimate Clumped Platelets Plt Clumps, EDTA Large Platelets Giant Platelets Platelet Satelliting Plt Morphology Comment RBC Morphology Dimorphic RBCs Polychromasia Hypochromasia Poikilocytosis Anisocytosis Microcytosis Macrocytosis Spherocytes Pappenheimer Bodies Sickle Cells Target Cells Tear Drop Cells Ovalocytes Helmet Cells [place] Bodies [place] Rings [place] Cells Bite Cells Crenated Cell Elliptocytes Acanthocytes (Spur) Rouleaux Hemoglobin C Crystals Schistocytes Malaria parasites Johnny Bodies Hem Pathologist Commnt PT (12.2-14.9) Sec. INR (0.87-1.13) APTT (24.2-36.6) Sec. Sodium (137-145) mmol/L Potassium (3.6-5.0) mmol/L Chloride (98-107) mmol/L Carbon Dioxide (22-30) mmol/L Anion Gap mmol/L BUN (7-17) mg/dL Creatinine (0.6-1.2) mg/dL Estimated GFR ml/min BUN/Creatinine Ratio % Glucose (65-100) mg/dL Calcium (8.4-10.2) mg/dL Magnesium 1.70 (1.7-2.3) mg/dL Troponin T < 0.010 (0.00-0.029) ng/mL - EKG Data -: EKG Interpreted by Wy EKG shows normal: sinus rhythm, ST-T waves (No STEMI or LVH) Rate: tachycardia (104) - EKG Data When compared to previous EKG there are: no significant change - Radiology Data Radiology results: report reviewed CHEST 2 VIEWS INDICATION / CLINICAL INFORMATION: Chest Pain. COMPARISON: 05/04/2020. FINDINGS: SUPPORT DEVICES: The position of the left jugular CVL has not changed with the tip overlying the upper cavoatrial junction. HEART / MEDIASTINUM: The heart size and pulmonary vasculature are normal. The aorta is normal in caliber. LUNGS / PLEURA: No significant pulmonary or pleural abnormality. No pneumothorax. ADDITIONAL FINDINGS: No significant additional findings. IMPRESSION: No acute abnormality or significant change. CTA CHEST WITH CONTRAST INDICATION / CLINICAL INFORMATION: chest pain, sob. TECHNIQUE: Axial CT images were obtained through the chest after injection of 100 cc Omnipaque 350 IV contrast. 3 plane MIP and/or 3D reconstructions were produced. All CT scans at this location are p erformed using CT dose reduction for ALARA by means of automated exposure con trol. COMPARISON: 05/04/2020 FINDINGS: PULMONARY ARTERIES: No pulmonary emboli. THORACIC AORTA: No significant abnormality. HEART: Mild cardiomegaly. MEDIASTINUM / MICHAEL: No significant abnormality. PLEURA: No pleural effusion. No pneumothorax. LUNGS: No acute air space or interstitial disease. UPPER ABDOMEN: Small hiatal hernia. SKELETAL STRUCTURES: No significant osseous abnormality. ADDITIONAL FINDINGS: Left anterior chest wall port device with central venous catheter extending to the distal SVC. Left axillary lymphadenopathy appears slightly smaller when compared to 05/04/2020. IMPRESSION: 1. No CT evidence for pulmonary embolism. 2. No acute findings. - Medical Decision Making Patient presents to the hospital with complaints of odynophagia, chest pain, early CAD, isela bloating, shortness of breath. Symptoms appear to be GI related. No acute abnormality on exam. CTA negative for pulmonary embolism or acute abnormality. EKG unchanged from previous with troponin negative x2. Case discussed with GI on-call who recommends admission for endoscopy and further evaluation. Patient treated with morphine, Zofran, IV Pepcid, and IV potassium for mild hypokalemia. Is unclear if patient symptoms are a side effect of chemotherapy or related to acute infection or esophageal/GI abnormality. Patient be admitted to the hospitalist service with GI consultation for further evaluation Critical care attestation.: If time is entered above; I have spent that time in minutes in the direct care of this critically ill patient, excluding procedure time. ED Disposition Clinical Impression: Odynophagia, Metastatic breast cancer, HTN (hypertension), Diabetes, Early satiety, S/P chemotherapy, time since less than 4 weeks, Hypokalemia Disposition: OP ADMIT IP TO THIS HOSP Is pt being admited?: Yes Condition: Stable Time of Disposition: 22:13 (Dr Pat/hosp)
--- NOTE | 2020-06-11 21:37 | Cat Scan Report ---
CTA CHEST WITH CONTRAST INDICATION / CLINICAL INFORMATION: chest pain, sob. TECHNIQUE: Axial CT images were obtained through the chest after injection of 100 cc Omnipaque 350 IV contrast. 3 plane MIP and/or 3D reconstructions were produced. All CT scans at this location are performed usin g CT dose reduction for RONEL by means of automated exposure control. COMPARISON: 05/04/2020 FINDINGS: PULMONARY ARTERIES: No pulmonary emboli. THORACIC AORTA: No significant abnormality. HEART: Mild cardiomegaly. MEDIASTINUM / MICHAEL: No significant abnormality. PLEURA: No pleural effusion. No pneumothorax. LUNGS: No acute air space or interstitial disease. UPPER ABDOMEN: Small hiatal hernia. SKELETAL STRUCTURES: No significant osseous abnormality. ADDITIONAL FINDINGS: Left anterior chest wall port device with central venous catheter extending to t he distal SVC. Left axillary lymphadenopathy appears slightly smaller when compared to 05/04/2020. IMPRESSION: 1. No CT evidence for pulmonary embolism. 2. No acute findings. Signer Name: Kin Mcfarland MD Signed: 06/11/2020 9:32 PM Workstation Name: [id number]
[2020-06-11] MEDS ORDERED: MAGNESIUM HYDROXIDE (MOM) ORAL LIQD UDC PO PRN (23:00)
[2020-06-11] MEDS ORDERED: DEXTROSE 50% IN WATER (25GM) 50 ML SYRINGE IV PRN (23:00)
[2020-06-11] MEDS ORDERED: MORPHINE 2 MG/1 ML INJ IV PRN (23:00)
[2020-06-11] MEDS ORDERED: ACETAMINOPHEN 325 MG TAB PO PRN (23:00)
[2020-06-11] MEDS ORDERED: ONDANSETRON 4 MG/2 ML INJ IV PRN (23:00)
--- NOTE | 2020-06-11 23:12 | History and Physical Report ---
History of Present Illness Date of examination: 06/11/20 Date of admission: 06/11/20 22:13 Chief complaint: Chest Pain History of present illness: 50-year-old -[place] female with known history of diabetes mellitus, hypertension, metastatic breast cancer on chemotherapy at [facility] presenting to the emergency room today complaining of pain upon swallowing which has been ongoing for about 3 days. She therefore has been having decreased oral intake because of the pain. She feels bloated at times and she has been having early satiety. While she was trying to eat today she was having some substernal chest pain and tightness along the throat. She indicates she has had history of acid reflux in the past but she has not been taking any medication lately. Patient denies any recent weight loss, denies any history of oral thrush. Patient denies any fever or chills denies any recent travel and no sick contacts. Denies any contact with anyone with COVID-19. She has had some nausea but no vomiting and no diarrhea. Work-up in the emergency room today including CT angiogram, EKG and troponins been negative. Practice Physician Dr. Cowart has been consulted by the ER physician for possible odynophagia. Past History Past Medical History: diabetes, hypertension, hyperlipidemia, renal failure (Chronic), other (H/O Breast ca.,Proteinuria) Past Surgical History: appendectomy, cholecystectomy, , hysterectomy, O ther ([place] [facility]) Social history: no significant social history Family history: no significant family history Medications and Allergies Allergies Allergy/AdvReac Type Severity Reaction Status Date / Time No Known Allergies Allergy Verified 05/04/20 06:28 Home Medications Medication Instructions Recorded Confirmed Last Taken Type Hydrochlorothiazide 12.5 mg PO DAILY 06/11/20 06/11/20 Unknown History amLODIPine 10 mg PO DAILY 06/11/20 06/11/20 Unknown History metFORMIN 500 mg PO DAILY 06/11/20 06/11/20 Unknown History Active Meds: Active Medications Acetaminophen (Tylenol) 650 mg PO Q4H PRN PRN Reason: Pain MILD(1-3)/Fever >100.5/COX Dextrose (D50w (25gm) Syringe) 50 ml IV Q30MIN PRN; Protocol PRN Reason: Hypoglycemia Dextrose (D50w (25gm) Syringe) 50 ml IV Q30MIN PRN; Protocol PRN Reason: Hypoglycemia Potassium Chloride (Kcl 10meq/100ml) 10 meq in 100 mls @ 100 mls/hr IV Q1H [facility] Stop: 06/12/20 00:59 Insulin Human Lispro (Humalog) 0 unit SUB-Q ACHS EDSON; Protocol Magnesium Hydroxide (Milk Of Magnesia) 30 ml PO Q4H PRN PRN Reason: Constipation Morphine Sulfate (Morphine) 2 mg IV Q4H PRN PRN Reason: Pain, Moderate (4-6) Ondansetron HCl (Zofran) 4 mg IV Q8H PRN PRN Reason: Nausea And Vomiting Sodium Chloride (Sodium Chloride Flush Syringe 10 Ml) 10 ml IV BID EDSON Sodium Chloride (Sodium Chloride Flush Syringe 10 Ml) 10 ml IV PRN PRN PRN Reason: LINE FLUSH Review of Systems Constitutional: no fever, no chills Ears, nose, mouth and throat: no nasal congestion, no sore throat Cardiovascular: chest pain, no palpitations Respiratory: no cough, no shortness of breath Gastrointestinal: heartburn, early satiety, no abdominal pain, no nausea, no v omiting, no diarrhea Genitourinary Female: no pelvic pain, no flank pain, no dysuria, no hematuria Musculoskeletal: no neck pain, no low back pain Integumentary: no rash, no pruritis Neurological: no headaches, no memory loss Psychiatric: no anxiety, no depression Exam - Constitutional Vitals: Temp Pulse Resp BP Pulse Ox 98.2 F 80 16 153/79 95 06/11/20 17:02 06/11/20 22:42 06/11/20 22:42 06/11/20 22:42 06/11/20 22:42 General appearance: Present: no acute distress, well-nourished - EENT Eyes: Present: PERRL, EOM intact. Absent: scleral icterus ENT: hearing intact, clear oral mucosa, dentition normal - Neck Neck: Present: supple, normal ROM - Respiratory Respiratory effort: normal Respiratory: bilateral: CTA - Cardiovascular Rhythm: regular Heart Sounds: Present: S1 & S2. Absent: gallop, systolic murmur, diastolic murmur, rub - Extremities Extremities: no ischemia, pulses intact, pulses symmetrical, No edema, Full ROM Peripheral Pulses: within normal limits - Abdominal General gastrointestinal: Present: soft, non-tender, non-distended, normal bowel sounds. Absent: mass - Integumentary Integumentary: Present: clear, warm, dry. Absent: rash - Musculoskeletal Musculoskeletal: strength equal bilaterally - Psychiatric Psychiatric: appropriate mood/affect, intact judgment & insight, memory intact, cooperative - Neurologic Neurologic: CNII-XII intact, no focal deficits, moves all extremities HEART Score - HEART Score EKG: Normal Age: 45-65 Risk factors: > 3 risk factors or hx of atherosclerotic disease Troponin: Troponin T < 0.010 ng/mL (0.00-0.029) 06/11/20 20:03 Troponin: < normal limit Results - Labs CBC & Chem 7: 06/11/20 17:10 06/12/20 03:49 Labs: Abnormal lab results 06/11/20 06/11/20 Range/Units 17:10 17:10 WBC 12.9 H (4.5-11.0) K/mm3 MCH 27 L (28-32) pg Lymphocytes % (Manual) 10.0 L (13.4-35.0) % Monocytes % (Manual) 13.0 H (0.0-7.3) % Seg Neutrophils # Man 8.6 H (1.8-7.7) K/mm3 Monocytes # (Manual) 1.7 H (0.0-0.8) K/mm3 Potassium 3.3 L (3.6-5.0) mmol/L Chloride 97.7 L (98-107) mmol/L Glucose 114 H (65-100) mg/dL Assessment and Plan - Patient Problems (1) Odynophagia Current Visit: Yes Status: Acute Plan to address problem: Patient will be given analgesic medication as needed for relief. Consult has been placed to electrical maintenance worker for evaluation and recommendation. (2) Diabetes Current Visit: Yes Status: Acute Plan to address problem: We will monitor Accu-Cheks and resume routine home medications. (3) HTN (hypertension) Current Visit: Yes Status: Acute Plan to address problem: We will resume routine home medication and monitor vital signs closely. (4) Hypokalemia Current Visit: Yes Status: Acute Plan to address problem: Potassium will be repleted and will monitor chemistry. (5) Metastatic breast cancer Current Visit: Yes Status: Acute Plan to address problem: Patient receiving chemotherapy at [facility]. (6) DVT prophylaxis Current Visit: Yes Status: Acute Plan to address problem: Patient placed on subcutaneous Lovenox (7) Full code status Current Visit: Yes Status: Acute
[2020-06-11] MEDS ORDERED: SODIUM CHLORIDE 0.9% 500 ML 500 ML IV SCH (23:45)
[2020-06-11] MEDS ORDERED: SODIUM CHLORIDE 0.9% 1000 ML 1,000 ML IV SCH (23:45)
[2020-06-12] MEDS: POTASSIUM CHLORIDE 10 MEQ 10 MEQ/100 ML BAG IV SCH ×2 (00:09→02:12)
[2020-06-12] MEDS ORDERED: SODIUM CHLORIDE 0.9% 500 ML 500 ML IV SCH (03:00)
[2020-06-12 04:43] LABS: INR 0.98 (0.87-1.13)
[2020-06-12 04:45] LABS: Blood Urea Nitrogen 9 mg/dL (7-17); Calcium 8.9 mg/dL (8.4-10.2); Hemolysis Index 5
[2020-06-12 04:48] LABS: BUN/Creatinine Ratio 18
[2020-06-12] MEDS: INSULIN LISPRO 100 UNIT/ML VIAL 3 mL SUB-Q SCH ×4 (07:30→23:45)
[2020-06-12] MEDS: PANTOPRAZOLE 40 MG INJ IV SCH ×2 (09:10→21:49)
[2020-06-12] MEDS ORDERED: SODIUM CHLORIDE 0.9% 1000 ML 1,000 ML ONE (15:05)
--- NOTE | 2020-06-12 15:05 | Anesthesia Day of Surgery ---
Anesthesia Day of Surgery - Day of Surgery Patient Examined: Yes Patient H&P Reviewed: Yes Patient is NPO: Yes
--- NOTE | 2020-06-12 15:07 | Anesthesia Consultation ---
Anesthesia Consult and Med Hx Date of service: 06/12/20 - Airway Anesthetic Teeth Evaluation: Chipped ROM Head & Neck: Adequate Mental/Hyoid Distance: Adequate Mallampati Class: Class II Intubation Access Assessment: Good - Pre-Operative Health Status ASA Pre-Surgery Classification: ASA3 Proposed Anesthetic Plan: MAC - Pulmonary Hx Smoking: No Hx Asthma: No (+2FS) COPD: No Hx Pneumonia: No Hx Sleep Apnea: No - Cardiovascular System Hx Hypertension: Yes Hx Coronary Artery Disease: No Hx Heart Attack/AMI: No Hx Angina: No Hx Percutaneous Transluminal Coronary Angioplasty (PTCA): No Hx Pacemaker: No Hx Internal Defibrillator: No Hx Valvular Heart Disease: No Hx Heart Murmur: No Hx Peripheral Vascular Disease: No - Central Nervous System Hx Seizures: No CVA: No Hx Psychiatric Problems: No - Endocrine Hx Renal Disease: No Hx End Stage Renal Disease: No Hx Liver Disease: No Hx Non-Insulin Dependent Diabetes: Yes Hx Hypothyroidism: No Hx Hyperthyroidism: No - Hematic Hx Anemia: No Hx Sickle Cell Disease: No - Other Systems Hx Cancer: Yes (Metastatic breast cancer on chemo; has port) Hx Obesity: No
[2020-06-12] MEDS ORDERED: propofoL 200 MG/20 ML VIAL IV ONE (15:21)
--- NOTE | 2020-06-12 15:39 | Gastroenterology Consultation ---
History of Present Illness - Reason for Consult Consult date: 06/12/20 Odynophagia Requesting physician: DORA CERDA - History of Present Illness Is a pleasant 50-year-old female with diagnosis of breast cancer currently undergoing chemotherapy last dose was 1-1/2 weeks ago who presents with severe odynophagia The patient reports worsening odynophagia for the last 4 days she reports upon swallowing anything she developed severe pain in the upper chest she is having great difficulty swallowing liquids and cannot swallow solids. She reports she was able to take 1 teaspoon of applesauce this morning cannot keep anything else down due to the severe pain. The chest pain is sharp, upper chest, severe, worse with swallowing anything, better with nothing, duration days, will last for minutes nonradiating, associated with nausea. She denies history of similar symptoms in the past, denies oral thrush Obtained/updated/reviewed patient's current medications Past History Past Medical History: diabetes, hypertension, hyperlipidemia, other (H/O Breast ca.,Proteinuria) Past Surgical History: appendectomy, cholecystectomy, , hysterectomy, Other ([place] Placement) Social history: no significant social history Family history: no significant family history Medications and Allergies Allergies Allergy/AdvReac Type Severity Reaction Status Date / Time No Known Allergies Allergy Verified 05/04/20 06:28 Home Medications Medication Instructions Recorded Confirmed Last Taken Type Hydrochlorothiazide 12.5 mg PO DAILY 06/11/20 06/11/20 Unknown History amLODIPine 10 mg PO DAILY 06/11/20 06/11/20 Unknown History metFORMIN 500 mg PO DAILY 06/11/20 06/11/20 Unknown History Active Meds: Active Medications Acetaminophen (Tylenol) 650 mg PO Q4H PRN PRN Reason: Pain MILD(1-3)/Fever >100.5/COX Dextrose (D50w (25gm) Syringe) 0 ml IV Q30MIN PRN; Protocol PRN Reason: Hypoglycemia Enoxaparin Sodium (Enoxaparin) 40 mg SUB-Q QDAY@2200 EDSON; Protocol Insulin Human Lispro (Humalog) 0 unit SUB-Q ACHS EDSON; Protocol Last Admin: 06/12/20 11:30 Dose: Not Given Documented by: Magnesium Hydroxide (Milk Of Magnesia) 30 ml PO Q4H PRN PRN Reason: Constipation Last Admin: 06/12/20 09:10 Dose: 30 ml Documented by: Morphine Sulfate (Morphine) 2 mg IV Q4H PRN PRN Reason: Pain, Moderate (4-6) Ondansetron HCl (Zofran) 4 mg IV Q8H PRN PRN Reason: Nausea And Vomiting Last Admin: 06/12/20 00:09 Dose: 4 mg Documented by: Pantoprazole Sodium (Protonix) 40 mg IV BID [facility] Last Admin: 06/12/20 09:10 Dose: 40 mg Documented by: Sodium Chloride (Sodium Chloride Flush Syringe 10 Ml) 10 ml IV BID [facility] Last Admin: 06/12/20 13:35 Dose: 10 ml Documented by: Sodium Chloride (Sodium Chloride Flush Syringe 10 Ml) 10 ml IV PRN PRN PRN Reason: LINE FLUSH Review of Systems - Review of Systems All systems: negative (10 Systems reviewed and negative except as mentioned above in the history of present illness but with the addition of fatigue and weakness and hair loss) Exam - Constitutional Vital Signs: Temp Pulse Resp BP Pulse Ox 98.8 F 83 18 144/84 98 06/12/20 06:42 06/12/20 06:42 06/12/20 06:42 06/12/20 06:42 06/12/20 06:42 General appearance: no acute distress - EENT Eyes: EOM intact - Neck Neck: supple - Respiratory Respiratory effort: normal - Cardiovascular Rhythm: regular - Gastrointestinal General gastrointestinal: Present: soft, non-tender - Integumentary Integumentary: Present: dry - Neurologic Neurological: alert and oriented x3 - Psychiatric Psychiatric: appropriate mood/affect - Labs CBC & Chem 7: 06/11/20 17:10 06/12/20 03:49 Lab Results: Laboratory Results - last 24 hr 06/11/20 06/11/20 06/11/20 17:10 17:10 17:10 WBC 12.9 H RBC 4.62 Hgb 12.6 Hct 37.9 MCV 82 MCH 27 L MCHC 33 RDW 13.7 Plt Count 299 [place] % (Auto) [facility] Coordinator Add Manual Diff Complete Total Counted 100 Seg Neuts % (Manual) 67.0 Band Neutrophils % 7.0 Lymphocytes % (Manual) 10.0 L Reactive Lymphs % (Man) 0 Monocytes % (Manual) 13.0 H Eosinophils % (Manual) 0 Basophils % (Manual) 1.0 Metamyelocytes % 2.0 Myelocytes % 0 Promyelocytes % 0 Blast Cells % 0 Nucleated RBC % Not Reportable Seg Neutrophils # Man 8.6 H Band Neutrophils # 0.9 Lymphocytes # (Manual) 1.3 Abs React Lymphs (Man) 0.0 Monocytes # (Manual) 1.7 H Eosinophils # (Manual) 0.0 Basophils # (Manual) 0.1 Metamyelocytes # 0.3 Myelocytes # 0.0 Promyelocytes # 0.0 Blast Cells # 0.0 WBC Morphology Not Reportable Hypersegmented Neuts Not Reportable Hyposegmented Neuts Not Reportable Hypogranular Neuts Not Reportable Smudge Cells Not Reportable Toxic Granulation Not Reportable Toxic Vacuolation Not Reportable Dohle Bodies Not Reportable Pelger-Huet Anomaly Not Reportable Khushbu Rods Not Reportable Platelet Estimate Consistent w auto Clumped Platelets Not Reportable Plt Clumps, EDTA Not Reportable Large Platelets Not Reportable Giant Platelets Not Reportable Platelet Satelliting Not Reportable Plt Morphology Comment Not Reportable RBC Morphology Not Reportable Dimorphic RBCs Not Reportable Polychromasia Not Reportable Hypochromasia Not Reportable Poikilocytosis Not Reportable Anisocytosis Not Reportable Microcytosis Not Reportable Macrocytosis Not Reportable Spherocytes Not Reportable Pappenheimer Bodies Not Reportable Sickle Cells Not Reportable Target Cells Not Reportable Tear Drop Cells Rare Ovalocytes Rare Helmet Cells Not Reportable Guzmán-[place] Bodies Not Reportable Et[place] Rings Not Reportable Hurricane Cells Not Reportable Bite Cells Not Reportable Crenated Cell Not Reportable Elliptocytes Not Reportable Acanthocytes (Spur) Not Reportable Rouleaux Not Reportable Hemoglobin C Crystals Not Reportable Schistocytes Not Reportable Malaria parasites Not Reportable Johnny Bodies Not Reportable Hem Pathologist Commnt No PT 12.4 INR 0.91 APTT 26.5 Sodium 137 Potassium 3.3 L Chloride 97.7 L Carbon Dioxide 23 Anion Gap 20 BUN 14 Creatinine 0.6 Estimated GFR > 60 BUN/Creatinine Ratio 23 Glucose 114 H POC Glucose Calcium 9.7 Magnesium Troponin T < 0.010 06/11/20 06/11/20 06/11/20 20:03 20:03 22:50 WBC RBC Hgb Hct MCV MCH MCHC RDW Plt Count [place] % (Auto) Add Manual Diff Total Counted Seg Neuts % (Manual) Band Neutrophils % Lymphocytes % (Manual) Reactive Lymphs % (Man) Monocytes % (Manual) Eosinophils % (Manual) Basophils % (Manual) Metamyelocytes % Myelocytes % Promyelocytes % Blast Cells % Nucleated RBC % Seg Neutrophils # Man Band Neutrophils # Lymphocytes # (Manual) Abs React Lymphs (Man) Monocytes # (Manual) Eosinophils # (Manual) Basophils # (Manual) Metamyelocytes # Myelocytes # Promyelocytes # Blast Cells # WBC Morphology Hypersegmented Neuts Hyposegmented Neuts Hypogranular Neuts Smudge Cells Toxic Granulation Toxic Vacuolation Dohle Bodies Pelger-Huet Anomaly Khushbu Rods Platelet Estimate Clumped Platelets Plt Clumps, EDTA Large Platelets Giant Platelets Platelet Satelliting Plt Morphology Comment RBC Morphology Dimorphic RBCs Polychromasia Hypochromasia Poikilocytosis Anisocytosis Microcytosis Macrocytosis Spherocytes Pappenheimer Bodies Sickle Cells Target Cells Tear Drop Cells Ovalocytes Helmet Cells Guzmán-Alamo Bodies Et[place] Rings Darin Cells Bite Cells Crenated Cell Elliptocytes Acanthocytes (Spur) Rouleaux Hemoglobin C Crystals Schistocytes Malaria parasites Johnny Bodies Hem Pathologist Commnt PT INR APTT Sodium Potassium Chloride Carbon Dioxide Anion Gap BUN Creatinine Estimated GFR BUN/Creatinine Ratio Glucose POC Glucose Calcium Magnesium 1.70 Troponin T < 0.010 < 0.010 06/12/20 06/12/20 06/12/20 03:49 03:49 08:58 WBC RBC Hgb Hct MCV MCH MCHC RDW Plt Count [place] % (Auto) Add Manual Diff Total Counted Seg Neuts % (Manual) Band Neutrophils % Lymphocytes % (Manual) Reactive Lymphs % (Man) Monocytes % (Manual) Eosinophils % (Manual) Basophils % (Manual) Metamyelocytes % Myelocytes % Promyelocytes % Blast Cells % Nucleated RBC % Seg Neutrophils # Man Band Neutrophils # Lymphocytes # (Manual) Abs React Lymphs (Man) Monocytes # (Manual) Eosinophils # (Manual) Basophils # (Manual) Metamyelocytes # Myelocytes # Promyelocytes # Blast Cells # WBC Morphology Hypersegmented Neuts Hyposegmented Neuts Hypogranular Neuts Smudge Cells Toxic Granulation Toxic Vacuolation Dohle Bodies Pelger-Huet Anomaly Khushbu Rods Platelet Estimate Clumped Platelets Plt Clumps, EDTA Large Platelets Giant Platelets Platelet Satelliting Plt Morphology Comment RBC Morphology Dimorphic RBCs Polychromasia Hypochromasia Poikilocytosis Anisocytosis Microcytosis Macrocytosis Spherocytes Pappenheimer Bodies Sickle Cells Target Cells Tear Drop Cells Ovalocytes Helmet Cells Guzmán-[place] Bodies Et[place] Rings Hurricane Cells Bite Cells Crenated Cell Elliptocytes Acanthocytes (Spur) Rouleaux Hemoglobin C Crystals Schistocytes Malaria parasites Johnny Bodies Hem Pathologist Commnt PT 13.2 INR 0.98 APTT Sodium 139 Potassium 3.7 Chloride 99.6 Carbon Dioxide 24 Anion Gap 19 BUN 9 Creatinine 0.5 L Estimated GFR > 60 BUN/Creatinine Ratio 18 Glucose 125 H POC Glucose 117 H Calcium 8.9 Magnesium Troponin T 06/12/20 12:45 WBC RBC Hgb Hct MCV MCH MCHC RDW Plt Count [place] % (Auto) Add Manual Diff Total Counted Seg Neuts % (Manual) Band Neutrophils % Lymphocytes % (Manual) Reactive Lymphs % (Man) Monocytes % (Manual) Eosinophils % (Manual) Basophils % (Manual) Metamyelocytes % Myelocytes % Promyelocytes % Blast Cells % Nucleated RBC % Seg Neutrophils # Man Band Neutrophils # Lymphocytes # (Manual) Abs React Lymphs (Man) Monocytes # (Manual) Eosinophils # (Manual) Basophils # (Manual) Metamyelocytes # Myelocytes # Promyelocytes # Blast Cells # WBC Morphology Hypersegmented Neuts Hyposegmented Neuts Hypogranular Neuts Smudge Cells Toxic Granulation Toxic Vacuolation Dohle Bodies Pelger-Huet Anomaly Khushbu Rods Platelet Estimate Clumped Platelets Plt Clumps, EDTA Large Platelets Giant Platelets Platelet Satelliting Plt Morphology Comment RBC Morphology Dimorphic RBCs Polychromasia Hypochromasia Poikilocytosis Anisocytosis Microcytosis Macrocytosis Spherocytes Pappenheimer Bodies Sickle Cells Target Cells Tear Drop Cells Ovalocytes Helmet Cells Guzmán-[place]amo Bodies Et[place] Rings Hurricane Cells Bite Cells Crenated Cell Elliptocytes Acanthocytes (Spur) Rouleaux Hemoglobin C Crystals Schistocytes Malaria parasites Johnny Bodies Hem Pathologist Commnt PT INR APTT Sodium Potassium Chloride Carbon Dioxide Anion Gap BUN Creatinine Estimated GFR BUN/Creatinine Ratio Glucose POC Glucose 109 H Calcium Magnesium Troponin T Assessment and Plan Because of the differential diagnosis is infectious etiology such as Priscilla esophagitis versus mucositis due to chemotherapy. The management of these etiologies is different, therefore accurate diagnosis is required to help alleviate the patient's symptoms. Therefore, given her white count is safe for a procedure, will proceed with EGD for further evaluation of her symptoms with final recommendations regarding management of her pain based upon the results - Patient Problems (1) Odynophagia Current Visit: Yes Status: Acute
--- NOTE | 2020-06-12 15:47 | Operative Report ---
Operative Report Operative Report: DOS: 06/12/20 SURGEON: Iván Rivera MD EGD with biopsy REPORT PREOPERATIVE DIAGNOSIS and POSTOPERATIVE DIAGNOSIS: odynophagia ESTIMATED BLOOD LOSS: minima; DESCRIPTION OF PROCEDURE: A high-resolution EGD scope was passed through the oropharynx, esophagus, stomach, and second portion of duodenum. The scope was carefully withdrawn. Retroflexion was performed in the stomach. At the end of the procedure, the scope was cleaned using normal technique. Vital signs monitored continuously throughout. SEDATION: Provided by [facility]iology [facility]. COMPLICATIONS: None. FINDINGS: * No gross lesions in the entire examined duodenum * Minimal gastritis in the gastric antrum with mild erythema * 3 cm hiatal hernia * Very mild nonobstructing Schatzki ring * LA grade B esophagitis in the distal 1 cm of the esophagus additionally there were white spots in the distal esophagus concerning for possible mild Priscilla esophagitis * Remainder of the exam was unremarkable with no other abnormalities in the mid and proximal esophagus RECOMMENDATIONS: * Will start patient on clear liquid diet * Empirically treat suspected esophageal candidiasis with Diflucan 400 mg today, then 200 mg daily thereafter for a total of 21 days of therapy (follow-up biopsy results if biopsies are negative for Priscilla then stop the Diflucan). We will stop as needed Zofran due to interaction with the Diflucan * Add on topical lidocaine orally to help with the odynophagia as well as Carafate standing, though if the Carafate is causing more pain can stop the Carafate
[2020-06-12] MEDS ORDERED: FLUCONAZOLE 200 MG TAB PO SCH (16:00)
[2020-06-12] MEDS: SUCRALFATE 1 GM/10 ML ORAL LIQD PO SCH ×2 (16:38→21:49)
--- NOTE | 2020-06-12 20:25 | Progress Note ---
Assessment and Plan (1) Odynophagia Current Visit: Yes Status: Acute Plan to address problem: EGD done today Bladder esophagitis FINDINGS of EGD * No gross lesions in the entire examined duodenum * Minimal gastritis in the gastric antrum with mild erythema * 3 cm hiatal hernia * Very mild nonobstructing Schatzki ring * LA grade B esophagitis in the distal 1 cm of the esophagus additionally there were white spots in the distal esophagus concerning for possible mild Priscilla esophagitis * Remainder of the exam was unremarkable with no other abnormalities in the mid and proximal esophagus RECOMMENDATIONS: * Will start patient on clear liquid diet * Empirically treat suspected esophageal candidiasis with Diflucan 400 mg today, then 200 mg daily thereafter for a total of 21 days of therapy (follow-up biopsy results if biopsies are negative for Priscilla then stop the Diflucan). We will stop as needed Zofran due to interaction with the Diflucan * Add on topical lidocaine orally to help with the odynophagia as well as Carafate standing, though if the Carafate is causing more pain can stop the Carafate (2) Diabetes Current Visit: Yes Status: Acute Plan to address problem: We will monitor Accu-Cheks and resume routine home medications. (3) HTN (hypertension) Current Visit: Yes Status: Acute Plan to address problem: We will resume routine home medication and monitor vital signs closely. (4) Hypokalemia Current Visit: Yes Status: Acute Plan to address problem: Potassium will be repleted and will monitor chemistry. (5) Metastatic breast cancer Current Visit: Yes Status: Acute Plan to address problem: Patient receiving chemotherapy at [facility]. (6) DVT prophylaxis Current Visit: Yes Status: Acute Plan to address problem: Patient placed on subcutaneous Lovenox (7) Full code status Current Visit: Yes Status: Acute Subjective Date of service: 06/12/20 Principal diagnosis: Odynophagia, candidal esophagitis Interval history: 50-year-old -[place] female with known history of diabetes mellitus, hypertension, metastatic breast cancer on chemotherapy at [facility] presenting to the emergency room today complaining of pain upon swallowing which has been ongoing for about 3 days. She therefore has been having decreased oral intake because of the pain. She feels bloated at times and she has been having early satiety. While she was trying to eat today she was having some substernal chest pain and tightness along the throat. She indicates she has had history of acid reflux in the past but she has not been taking any medication lately. Patient denies any recent weight loss, denies any history of oral thrush. Patient denies any fever or chills denies any recent travel and no sick contacts . Denies any contact with anyone with COVID-19. She has had some nausea but no vomiting and no diarrhea. Work-up in the emergency room today including CT angiogram, EKG and troponins been negative. [employer]r Dr. Cowatr has been consulted by the ER physician for possible odynophagia. Day #2 06/12/2020 Gastroenterology consult appreciated patient had EGD today which shows Priscilla esophagitis Objective - Constitutional Vitals: Vital Signs - 12hr 06/12/20 06/12/20 06/12/20 14:34 15:00 15:27 Temperature 98.2 F 98.5 F Pulse Rate 86 89 96 H Respiratory 16 13 21 Rate Blood Pressure 124/75 145/87 125/86 O2 Sat by Pulse 100 100 100 Oximetry 06/12/20 06/12/20 06/12/20 15:40 16:00 16:19 Temperature 98.7 F Pulse Rate 92 H 83 77 Respiratory 20 15 15 Rate Blood Pressure 133/78 132/83 135/76 O2 Sat by Pulse 98 98 98 Oximetry General appearance: Present: no acute distress, well-nourished - EENT Eyes: PERRL, EOM intact ENT: hearing intact, clear oral mucosa Ears: bilateral: normal - Neck Neck: supple, normal ROM - Respiratory Respiratory effort: normal Respiratory: bilateral: CTA - Breasts Breasts: normal - Cardiovascular Heart rate: 78 Rhythm: regular Heart Sounds: Present: S1 & S2. Absent: gallop, rub Extremities: no ischemia, pulses intact, No edema, normal color, Full ROM - Gastrointestinal General gastrointestinal: Present: soft, non-tender, non-distended, normal bowel sounds - Genitourinary Female genitourinary: normal - Integumentary Integumentary: clear, warm, dry - Musculoskeletal Musculoskeletal: 1, strength equal bilaterally - Neurologic Neurologic: moves all extremities - Psychiatric Psychiatric: memory intact, appropriate mood/affect, intact judgment & insight - Labs CBC & Chem 7: 06/11/20 17:10 06/12/20 03:49 Labs: Abnormal lab results 06/12/20 06/12/20 06/12/20 Range/Units 03:49 08:58 12:45 Creatinine 0.5 L (0.6-1.2) mg/dL Glucose 125 H (65-100) mg/dL POC Glucose 117 H 109 H (70-105) mg/dL 06/12/20 Range/Units 17:00 Creatinine (0.6-1.2) mg/dL Glucose (65-100) mg/dL POC Glucose 107 H (70-105) mg/dL HEART Score - HEART Score EKG: Normal Age: 45-65 Risk factors: > 3 risk factors or hx of atherosclerotic disease Troponin: Troponin T < 0.010 ng/mL (0.00-0.029) 06/11/20 22:50 Troponin: < normal limit
[2020-06-12] MEDS: LIDOCAINE VISCOUS 2% 15 ML ORAL LIQD PO SCH (21:48)
[2020-06-12] MEDS: ENOXAPARIN 40 MG/0.4 ML INJ SUB-Q SCH (21:49)
[2020-06-13] MEDS: LIDOCAINE VISCOUS 2% 15 ML ORAL LIQD PO SCH ×3 (05:30→21:27)
[2020-06-13 05:47] LABS: Alanine Aminotransferase 44 units/L (7-56); Albumin 3.7 g/dL (3.9-5); Blood Urea Nitrogen 6 mg/dL (7-17); Calcium 9.3 mg/dL (8.4-10.2); Hemolysis Index 0
[2020-06-13 05:55] LABS: BUN/Creatinine Ratio 10
--- NOTE | 2020-06-13 07:46 | Progress Note ---
Assessment and Plan - Patient Problems (1) Diabetes Current Visit: Yes Status: Acute Plan to address problem: At present continues to have optimal control blood pressure. Continue sliding scale. No changes in medical management. (2) Early satiety Current Visit: Yes Status: Acute Plan to address problem: Secondary to odynophagia pain and most likely gas as well. Plan sleeping position at PPI. And treatment of Priscilla esophagitis. (3) HTN (hypertension) Current Visit: Yes Status: Acute Plan to address problem: At present has optimal control blood pressure continue medical management. (4) Hypokalemia Current Visit: Yes Status: Acute (5) Metastatic breast cancer Current Visit: Yes Status: Acute Plan to address problem: Follow-up outpatient hematology oncology. (6) Odynophagia Current Visit: Yes Status: Acute Plan to address problem: Odynophagia most likely secondary to Priscilla esophagitis. Will confirm numbers. Plan to be potential discharge tomorrow patient continues to do well. 21 days of Diflucan will be treatment with confirmation of a positive biopsy result. Subjective Date of service: 06/13/20 Principal diagnosis: Odynophagia, candidal esophagitis Interval history: 50-year-old -[place] female with known history of diabetes mellitus, hypertension, metastatic breast cancer on chemotherapy at [facility] presenting to the emergency room today complaining of pain upon swallowing which has been ongoing for about 3 days. She therefore has been having decreased oral intake because of the pain. She feels bloated at times and she has been having early satiety. Patient this a.m. states pain is much better. She just has some gas in the mid epigastric area otherwise pain with swallowing has resolved. With advance diet. Tentative discharge in a.m. Objective - Constitutional Vitals: Vital Signs - 12hr 06/12/20 06/13/20 22:58 06:41 Temperature 98.9 F 98.8 F Pulse Rate 86 77 Respiratory 18 18 Rate Blood Pressure 132/80 120/75 O2 Sat by Pulse 99 97 Oximetry General appearance: Present: no acute distress, well-nourished - EENT Eyes: PERRL, EOM intact ENT: hearing intact, clear oral mucosa Ears: bilateral: normal - Neck Neck: supple, normal ROM - Respiratory Respiratory effort: normal Respiratory: bilateral: CTA - Breasts Breasts: normal - Cardiovascular Rhythm: regular Heart Sounds: Present: S1 & S2. Absent: gallop, rub Extremities: pulses intact, No edema, normal color, Full ROM - Gastrointestinal General gastrointestinal: Present: soft, non-tender, non-distended, normal bowel sounds - Genitourinary Female genitourinary: normal - Integumentary Integumentary: clear, warm, dry - Musculoskeletal Musculoskeletal: 1, strength equal bilaterally - Neurologic Neurologic: moves all extremities - Psychiatric Psychiatric: memory intact, appropriate mood/affect, intact judgment & insight - Labs CBC & Chem 7: 06/11/20 17:10 06/13/20 03:56 Labs: Abnormal lab results 06/12/20 06/12/20 06/12/20 Range/Units 08:58 12:45 17:00 BUN (7-17) mg/dL Glucose (65-100) mg/dL POC Glucose 117 H 109 H 107 H (70-105) mg/dL Alkaline Phosphatase (35-129) units/L Albumin (3.9-5) g/dL 06/12/20 06/13/20 Range/Units 23:12 03:56 BUN 6 L (7-17) mg/dL Glucose 119 H (65-100) mg/dL POC Glucose 106 H (70-105) mg/dL Alkaline Phosphatase 155 H (35-129) units/L Albumin 3.7 L (3.9-5) g/dL HEART Score - HEART Score EKG: Normal Age: 45-65 Risk factors: > 3 risk factors or hx of atherosclerotic disease Troponin: Troponin T < 0.010 ng/mL (0.00-0.029) 06/11/20 22:50 Troponin: < normal limit
--- NOTE | 2020-06-13 08:49 | Gastroenterology Progress Note ---
Assessment and Plan Patient symptoms beginning to improve with current therapy, continue current therapy and as patient's odynophagia continues to improve can advance diet as tolerated Follow-up pathology results to confirm diagnosis of Priscilla esophagitis; if confirmed patient would require a total of 21 days Diflucan 200 mg p.o. daily (today is day #2 of therapy) Given improvement in symptoms, GI will sign off please call back with any questions or concerns - Patient Problems (1) Odynophagia Current Visit: Yes Status: Acute Subjective Date of service: 06/13/20 Principal diagnosis: Odynophagia, candidal esophagitis Interval history: Patient reports moderate improvement in her symptoms. She still reports upper chest pain with swallowing that is sharp intermittent worse with swallowing better with the medication we have her on now duration days to weeks, gradually improving. Nonradiating. No associated symptoms Objective - Constitutional Vitals: Temp Pulse Resp BP Pulse Ox 98.8 F 77 18 120/75 97 06/13/20 06:41 06/13/20 06:41 06/13/20 06:41 06/13/20 06:41 06/13/20 06:41 General appearance: no acute distress - EENT Eyes: EOM intact - Respiratory Respiratory effort: normal - Cardiovascular Rhythm: regular - Gastrointestinal General gastrointestinal: Present: soft, non-tender - Labs CBC & Chem 7: 06/11/20 17:10 06/13/20 03:56 Labs: Laboratory Results - last 24 hr 06/12/20 06/12/20 06/12/20 08:58 12:45 17:00 Sodium Potassium Chloride Carbon Dioxide Anion Gap BUN Creatinine Estimated GFR BUN/Creatinine Ratio Glucose POC Glucose 117 H 109 H 107 H Calcium Total Bilirubin AST ALT Alkaline Phosphatase Total Protein Albumin Albumin/Globulin Ratio 06/12/20 06/13/20 06/13/20 23:12 03:56 07:55 Sodium 139 Potassium 4.1 Chloride 100.3 Carbon Dioxide 26 Anion Gap 17 BUN 6 L Creatinine 0.6 Estimated GFR > 60 BUN/Creatinine Ratio 10 Glucose 119 H POC Glucose 106 H 113 H Calcium 9.3 Total Bilirubin 0.20 AST 28 ALT 44 Alkaline Phosphatase 155 H Total Protein 6.6 Albumin 3.7 L Albumin/Globulin Ratio 1.3
[2020-06-13] MEDS: INSULIN LISPRO 100 UNIT/ML VIAL 3 mL SUB-Q SCH ×4 (10:03→23:35)
[2020-06-13] MEDS: SUCRALFATE 1 GM/10 ML ORAL LIQD PO SCH ×4 (11:10→21:27)
[2020-06-13] MEDS: PANTOPRAZOLE 40 MG INJ IV SCH ×2 (11:11→21:27)
[2020-06-13] MEDS: amLODIPine 10 MG TAB PO SCH (11:13)
[2020-06-13] MEDS: FLUCONAZOLE 200 MG TAB PO SCH (14:34)
[2020-06-13] MEDS: ENOXAPARIN 40 MG/0.4 ML INJ SUB-Q SCH (21:26)
[2020-06-14] MEDS: LIDOCAINE VISCOUS 2% 15 ML ORAL LIQD PO SCH ×3 (05:35→13:12)
[2020-06-14] MEDS: INSULIN LISPRO 100 UNIT/ML VIAL 3 mL SUB-Q SCH ×2 (07:30→11:30)
[2020-06-14] MEDS: SUCRALFATE 1 GM/10 ML ORAL LIQD PO SCH ×3 (07:30→16:57)
[2020-06-14] MEDS: PANTOPRAZOLE 40 MG INJ IV SCH (09:23)
[2020-06-14] MEDS: amLODIPine 10 MG TAB PO SCH (09:23)
[2020-06-14] MEDS: FLUCONAZOLE 200 MG TAB PO SCH (10:00)
--- NOTE | 2020-06-14 14:45 | Discharge Summary ---
Providers - Providers Date of Admission: 06/11/20 22:13 Date of discharge: 06/14/20 Attending physician: GENIA KHAN 06/11/20 22:02 Consult to Physician [CONS] Urgent Comment: Dr. De Jesus spoke with Dr. Joyce @ 2200 Consulting Provider: RAMAN JOYCE Physician Instructions: Reason For Exam: odynophagia, chest pain, chemo for breast ca 06/11/20 23:01 Consult to Dietitian/Nutrition [CONS] Routine Physician Instructions: Reason For Exam: Reason for Consult: Diet education Hospitalization Condition: Good Pertinent studies: CT scan abdomen showed negative PE and no acute findings. Chest x-ray unremarkable. 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 Biopsies are pending. Hospital course: Patient 50-year-old presented with abdominal pain odontophagia. Patient underwent work-up including EGD which showed gastritis esophagitis and Priscilla esophagitis. Biopsies are pending. Patient did much better after starting Diflucan and proton pump inhibitor. Clinically consistent with Priscilla esophagitis as well. Patient also undergoing chemotherapy which will also make patient more risk for Priscilla esophagitis. Disposition: DC- TO HOME OR SELFCARE - Discharge Diagnoses (1) Diabetes Status: Acute Comment: Patient has had optimal control of blood sugars throughout hospital stay. (2) Early satiety Status: Acute Comment: Has improved. Most likely secondary to gastritis. Patient will be given proton pump inhibitor as well. (3) HTN (hypertension) Status: Acute Comment: Patient currently has optimal control blood pressure. (4) Hypokalemia Status: Acute (5) Metastatic breast cancer Status: Acute Comment: Patient has follow-up chemotherapy on Tuesday. Will discharge patient can follow-up to receive chemotherapy for metastatic breast cancer. (6) Odynophagia Status: Acute Comment: Odynophagia thought to be secondary to Priscilla esophagi tis has improved significantly able to tolerate meals. Able to swallow without any pain or difficulty. We will continue treatment with Diflucan for total of 18 more days. Follow-up biopsy results. With primary care physician if negative may consider discontinuing. Core Measure Documentation - Palliative Care Palliative Care/ Comfort Measures: Not Applicable - Core Measures Any of the following diagnoses?: none Exam - Constitutional Vitals: Temp Pulse Resp BP Pulse Ox 98.7 F 85 18 125/65 96 06/13/20 22:23 06/13/20 22:23 06/13/20 22:23 06/13/20 22:23 06/13/20 22:23 General appearance: Present: no acute distress, well-nourished - EENT Eyes: Present: PERRL ENT: hearing intact, clear oral mucosa - Neck Neck: Present: supple, normal ROM - Respiratory Respiratory effort: normal Respiratory: bilateral: CTA - Cardiovascular Heart Sounds: Present: S1 & S2. Absent: rub, click - Extremities Extremities: pulses symmetrical, No edema Peripheral Pulses: within normal limits - Abdominal General gastrointestinal: Present: soft, non-tender, non-distended, normal bowel sounds Female genitourinary: Present: normal - Integumentary Integumentary: Present: clear, warm, dry - Musculoskeletal Musculoskeletal: gait normal, strength equal bilaterally - Psychiatric Psychiatric: appropriate mood/affect, intact judgment & insight - Neurologic Neurologic: CNII-XII intact, moves all extremities Plan Activity: no restrictions Weight Bearing Status: Full Weight Bearing Diet: other (Full liquid diet and brat diet for an additional 48 hours.) [facility] [Other] - 3-5 Days Prescriptions: Sucralfate [Carafate] 1 gm PO ACHS #1 oral.liqd Lidocaine Topical 2% 30Ml [Xylocaine Topical 2% 30Ml] 30 ml MM TID #7 tube
[2020-06-14 14:57] VITALS: BP 126/81
== END 2020-06-14 19:07 | disposition home or self-care (01) ==
LOC: ED 16:44 → 3A 22:13
PROVIDERS: ADMIT Internal Medicine Geriatric Medicine; ATTEND Internal Medicine
DX: R07.89 Other chest pain (principal); C50.919 Malignant neoplasm of unspecified site of unspecified female breast; I10 Essential (primary) hypertension; E87.6 Hypokalemia; E11.9 Type 2 diabetes mellitus without complications; R13.10 Dysphagia, unspecified; R68.81 Early satiety; Z92.21 Personal history of antineoplastic chemotherapy
CPT/HCPCS: 36415; 43239; 71046; 71275; 80048; 80053; 82962; 83735; 84484; 85025; 85610; 85730; 88305; 93005; 96361; 96365; 96366; 96372; 96375; 96376; 99285; C9113; G0378; J1650; J2270; J2405; J2704; J3480; J7030; Q9967; 85007; 88312

== ENCOUNTER 2021-10-26 23:33 | Emergency (ER) | payer MEDICAID ==
[2021-10-27] MEDS ORDERED: IBUPROFEN 600 MG TAB PO ONE (03:54)
[2021-10-27] MEDS ORDERED: oxyCODONE /ACETAMINOPHEN 5-325MG TAB PO ONE (03:54)
[2021-10-27] MEDS ORDERED: ONDANSETRON 4 MG ODT TAB PO ONE (03:54)
--- NOTE | 2021-10-27 04:00 | Emergency Department Report ---
ED Fall HPI - General Chief Complaint: Fall Stated Complaint: PAIN IN UPPER ABD Source: patient Mode of arrival: Ambulatory - History of Present Illness Initial Comments: Patient is a 51-year-old -[place] female with a history of breast cancer in remission and status post chemotherapy, hypertension and anj-dogtnmh-dxpmvyqfy diabetes who presents to the ED with complaint of acute onset persistent right lateral rib pain, right hip pain and right thigh pain after she tripped and fell on the street while walking and landed on her right side on a curb. Patient states that initially pain was mild but subsequently the pain has been worsening and tonight she was unable to sleep because of worsening pain in the right thigh, right hip and right lateral ribs. Patient denies head or neck injuries, lightheadedness, dizziness, syncope, seizures, back pain, shortness of breath, hemoptysis, abdominal pain, nausea and vomiting, loss of consciousness, numbness and tingling or weakness of upper and lower extremities bilaterally. MD Complaint: fall, other (Right rib, right hip and right thigh pain) -: Sudden, hour(s) (12) Fall From: standing When Fall Occurred: other (> 12 hours ago) Fall Witnessed: yes, by bystander Place Fall Occurred: street Loss of Consciousness: none Prolonged Down Time?: no Symptoms Prior to Fall: none Location: chest (right ribs), pelvis (right hip), other (right thigh pain) Location - Extremities: Right: Thigh (pain ) Severity: severe Severity scale (0 -10): 8 Quality: sharp, aching Context: tripped/slipped Associated Symptoms: denies. denies: headache, neck pain, numbness, weakness, chest paint, shortness of breath, abdominal pain, hematuria, unable to walk, lightheaded, vertigo, confusion, other - Related Data Home Medications Medication Instructions Recorded Confirmed Last Taken Hydrochlorothiazide 12.5 mg PO DAILY 06/11/20 06/11/20 Unknown amLODIPine 10 mg PO DAILY 06/11/20 06/11/20 Unknown metFORMIN 500 mg PO DAILY 06/11/20 06/11/20 Unknown Previous Rx's Medication Instructions Recorded Last Taken Type Acetaminophen [Acetaminophen TAB] 650 mg PO Q4H PRN tablet 06/14/20 Unknown Rx Lidocaine Topical 2% 30Ml 30 ml MM TID #7 tube 06/14/20 Unknown Rx [Xylocaine Topical 2% 30Ml] Pantoprazole Sodium [Protonix] 40 mg PO BID 30 Days #60 karipkt. 06/14/20 Unknown Rx Sucralfate [Carafate] 1 gm PO ACHS #1 oral.liqd 06/14/20 Unknown Rx amLODIPine 10 mg PO QDAY tablet 06/14/20 Unknown Rx Ibuprofen [Motrin] 800 mg PO Q8HR PRN #30 tablet 10/27/21 Unknown Rx methOCARBAMOL [Robaxin TAB] 750 mg PO Q8H PRN #30 tab 10/27/21 Unknown Rx Allergies Allergy/AdvReac Type Severity Reaction Status Date / Time No Known Allergies Allergy Verified 05/04/20 06:28 ED Review of Systems ROS: Stated complaint: PAIN IN UPPER ABD Other details as noted in HPI Constitutional: denies: chills, fever Eyes: denies: eye pain, eye discharge, vision change ENT: denies: ear pain, throat pain Respiratory: denies: cough, shortness of breath, wheezing Cardiovascular: chest pain (Right lateral chest wall and rib pain). denies: palpitations Endocrine: no symptoms reported Gastrointestinal: denies: abdominal pain, nausea, diarrhea Genitourinary: denies: urgency, dysuria, discharge Musculoskeletal: arthralgia (Right hip and right thigh pain). denies: back pain, joint swelling Skin: denies: rash, lesions Neurological: denies: headache, weakness, paresthesias Psychiatric: denies: anxiety, depression Hematological/Lymphatic: denies: easy bleeding, easy bruising ED Past Medical Hx - Past Medical History Previous Medical History?: Yes Hx Hypertension: Yes Hx Heart Attack/AMI: No Hx Congestive Heart Failure: No Hx Diabetes: Yes Hx Deep Vein Thrombosis: No Hx Pulmonary Embolism: No Hx GERD: No Hx Liver Disease: No Hx Renal Disease: No Hx Sickle Cell Disease: No Hx Arthritis: No Hx Seizures: No Hx Kidney Stones: No Hx Asthma: No (+2FS) Hx COPD: No Hx Tuberculosis: No Hx Dementia: No Hx HIV: No Additional medical history: proteinuria, breast mass, neuropathy - Surgical History Past Surgical History?: Yes Hx Coronary Stent: No Hx Pacemaker: No Hx Internal Defibrillator: No Hx Cholecystectomy: Yes Hx Appendectomy: Yes Additional Surgical History: hysterectomy, , Port-a-cath left chest - Social History Smoking Status: Never Smoker - Medications Home Medications: Home Medications Medication Instructions Recorded Confirmed Last Taken Type Hydrochlorothiazide 12.5 mg PO DAILY 06/11/20 06/11/20 Unknown History amLODIPine 10 mg PO DAILY 06/11/20 06/11/20 Unknown History metFORMIN 500 mg PO DAILY 06/11/20 06/11/20 Unknown History Acetaminophen [Acetaminophen TAB] 650 mg PO Q4H PRN tablet 06/14/20 Unknown Rx Lidocaine Topical 2% 30Ml 30 ml MM TID #7 tube 06/14/20 Unknown Rx [Xylocaine Topical 2% 30Ml] Pantoprazole Sodium [Protonix] 40 mg PO BID 30 Days #60 granpkt.dr 06/14/20 Unknown Rx Sucralfate [Carafate] 1 gm PO ACHS #1 oral.liqd 06/14/20 Unknown Rx amLODIPine 10 mg PO QDAY tablet 06/14/20 Unknown Rx Ibuprofen [Motrin] 800 mg PO Q8HR PRN #30 tablet 10/27/21 Unknown Rx methOCARBAMOL [Robaxin TAB] 750 mg PO Q8H PRN #30 tab 10/27/21 Unknown Rx ED Physical Exam - General Limitations: No Limitations General appearance: alert, in no apparent distress - Head Head exam: Present: atraumatic, normocephalic, normal inspection - Eye Eye exam: Present: normal appearance, PERRL, EOMI Pupils: Present: normal accommodation - ENT ENT exam: Present: normal exam, normal orophraynx, mucous membranes moist, TM's normal bilaterally, normal external ear exam - Neck Neck exam: Present: normal inspection, full ROM. Absent: tenderness - Respiratory Respiratory exam: Present: normal lung sounds bilaterally, chest wall tenderness (Palpable reproducible right lateral rib and chest wall tenderness). Absent: respiratory distress, wheezes, rales, rhonchi, accessory muscle use, decreased breath sounds, prolonged expiratory - Cardiovascular Cardiovascular Exam: Present: regular rate, normal rhythm, normal heart sounds. Absent: systolic murmur, diastolic murmur, rubs, gallop - GI/Abdominal GI/Abdominal exam: Present: soft, normal bowel sounds. Absent: tenderness, guarding, hyperactive bowel sounds, hypoactive bowel sounds, organomegaly - Extremities Exam Extremities exam: Present: normal inspection, full ROM (Limited range of motion of right hip and thigh due to pain), tenderness (Palpable right hip and right thigh tenderness with limited range of motion due to pain), normal capillary refill. Absent: pedal edema, joint swelling, calf tenderness - Back Exam Back exam: Present: normal inspection, full ROM. Absent: tenderness, CVA tenderness (R), CVA tenderness (L), muscle spasm, paraspinal tenderness, vertebral tenderness - Neurological Exam Neurological exam: Present: alert, oriented X3, CN II-XII intact, normal gait, reflexes normal - Psychiatric Psychiatric exam: Present: normal affect, normal mood - Skin Skin exam: Present: warm, dry, intact, normal color. Absent: rash ED Course Vital Signs 10/27/21 03:34 Temperature 98.2 F Pulse Rate 82 Respiratory 18 Rate Blood Pressure 149/86 [Right] O2 Sat by Pulse 97 Oximetry ED Medical Decision Making - Radiology Data Radiology results: report reviewed, image reviewed [facility] [address] [place] [address] XRay Report Signed Patient: DYLAN GUERRERO MR#: [id number] : 1970 Acct:[id number] Age/Sex: 51 / F ADM Date: 10/26/21 Loc: ED Attending Dr: Ordering Physician: ROSALINDA TOBAR Date of Service: 10/27/21 Procedure(s): XR ribs UNI w PA Chest 3+V RT Accession Number(s): [id number] cc: ROSALINDA TOBAR Fluoro Time In Minutes: RIGHT RIBS 5 VIEWS INDICATION / CLINICAL INFORMATION: FALL - RIGHT RIB PAIN. COMPARISON: Chest x-ray 06/11/2020 FINDINGS: RIBS: No acute, displaced fracture or other acute abnormality. LUNGS: No acute findings. No pneumothorax. Left-sided venous access device terminates within the superior vena cava. Prior cholecystectomy. Interval surgical changes right axilla. IMPRESSION: 1. No evidence of rib fracture. No acute findings. Signer Name: Zaheer Shannon II, MD Signed: 10/27/2021 4:38 AM Workstation Name: [id number] Transcribed By: BRYSON Dictated By: ZAHEER SHANNON II, MD Electronically Authenticated By: ZAHEER SHANNON II, MD Signed Date/Time: 10/27/21437 DD/ 5 TD/TT: [facility] [address] [place] [address] XRay Report Signed Patient: DYLAN GUERRERO MR#: [id number] : 1970 Acct:[id number] Age/Sex: 51 / F ADM Date: 10/26/21 Loc: ED Attending Dr: Ordering Physician: ROSALINDA TOBAR Date of Service: 10/27/21 Procedure(s): XR femur 2+V RT Accession Number(s): [id number] cc: ROSALINDA TOBAR Fluoro Time In Minutes: RIGHT FEMUR 2 VIEW(S) INDICATION / CLINICAL INFORMATION: fall - pain COMPARISON: None available. FINDINGS: BONES / JOINT(S): No acute fracture or subluxation. Marginal osteophyte formation and loss of joint space lateral joint compartment of the right knee. SOFT TISSUES: No significant abnormality. ADDITIONAL FINDINGS: None. IMPRESSION: 1. No evidence of acute pathology. Degenerative changes involving right knee as detailed. Signer Name: Zaheer Shannon II, MD Signed: 10/27/2021 4:34 AM Workstation Name: [id number] Transcribed By: BRYSON Dictated By: ZAHEER SHANNON II, MD Electronically Authenticated By: ZAHEER SHANNON II, MD Signed Date/Time: 10/27/21433 DD/ 2 TD/TT: - Medical Decision Making This is a 51-year-old -[place] female with a history of breast cancer in remission and status post chemotherapy, hypertension and fns-fuqugor-ghhipvolo diabetes who presents to the ED with complaint of acute onset persistent right lateral rib pain, right hip pain and right thigh pain after she tripped and fell on the street while walking and landed on her right side on a curb. Patient states that initially pain was mild but subsequently the pain has been worsening and tonight she was unable to sleep because of worsening pain in the right thigh, right hip and right lateral ribs. In the ED, patient is alert and oriented x3 and is not in any distress. Patient appears to be in significant pain. Patient was treated for pain in the ED and right hip and femur x-ray showed no acute fractures or subluxation. The right rib and chest x-ray showed no acute pneumothorax, rib fractures, pleural effusion or any cardiopulmonary abnormalities or pneumonitis. Patient symptoms are likely musculoskeletal following the fall injury previously sustained. On reevaluation, patient's pain is well controlled medication. Patient was discharged home on medications for pain and muscle relaxants and advised to follow-up with her primary care physician in 7 to 10 days for reevaluation. Patient advised return to the ED immediately if symptoms get worse. - Differential Diagnosis Leg contusion; hip contusion; rib fracture; muscle strain; hip sprain Critical care attestation.: If time is entered above; I have spent that time in minutes in the direct care of this critically ill patient, excluding procedure time. ED Disposition Clinical Impression: Contusion of rib on right side Qualifiers: Encounter type: initial encounter Qualified Code(s): S20.211A - Contusion of right front wall of thorax, initial encounter Contusion of right hip and thigh Qualifiers: Encounter type: initial encounter Qualified Code(s): S70.01XA - Contusion of ri ght hip, initial encounter; S70.11XA - Contusion of right thigh, initial encounter Muscle strain of right lower extremity Qualifiers: Encounter type: initial encounter Qualified Code(s): S86.911A - Strain of unspecified muscle(s) and tendon(s) at lower leg level, right leg, initial encounter Disposition: 01 HOME / SELF CARE / HOMELESS Is pt being admited?: No Does the pt Need Aspirin: No Condition: Stable Instructions: Muscle Strain, [id number], Rib Contusion, Quadriceps Contusion, [id number], Contusion, [id number] Additional Instructions: All imaging reports were reviewed and are all nonactionable, specifically no rib fractures, hip fracture or right femur fracture. Your injuries are likely musculoskeletal following the fall injury. Therefore take medication with food, drink plenty of fluids and follow-up with your primary care physician in 7 to 10 days for reevaluation. Return to the ED immediately if symptoms get worse. Prescriptions: Ibuprofen [Motrin] 800 mg PO Q8HR PRN #30 tablet PRN Reason: Pain , Severe (7-10) methOCARBAMOL [Robaxin TAB] 750 mg PO Q8H PRN #30 tab PRN Reason: Muscle Spasm Referrals: [facility] [Provider Group] - 7-10 days Time of Disposition: 05:10 Print Language: DANISH
--- NOTE | 2021-10-27 04:39 | XRay Report ---
RIGHT FEMUR 2 VIEW(S) INDICATION / CLINICAL INFORMATION: fall - pain COMPARISON: None available. FINDINGS: BONES / JOINT(S): No acute fracture or subluxation. Marginal osteophyte formation and loss of joint s pace lateral joint compartment of the right knee. SOFT TISSUES: No significant abnormality. ADDITIONAL FINDINGS: None. IMPRESSION: 1. No evidence of acute pathology. Degenerative changes involving right knee as detailed. Signer Name: Abner Heard II, MD Signed: 10/27/2021 4:34 AM Workstation Name: [id number]
--- NOTE | 2021-10-27 04:43 | XRay Report ---
RIGHT RIBS 5 VIEWS INDICATION / CLINICAL INFORMATION: FALL - RIGHT RIB PAIN. COMPARISON: Chest x-ray 06/11/2020 FINDINGS: RIBS: No acute, displaced fracture or other acute abnormality. LUNGS: No acute findings. No pneumothorax. Left-sided venous access device terminates within the supe rior vena cava. Prior cholecystectomy. Interval surgical changes right axilla. IMPRESSION: 1. No evidence of rib fracture. No acute findings. Signer Name: Abner Heard II, MD Signed: 10/27/2021 4:38 AM Workstation Name: [id number]
[2021-10-27 05:58] VITALS: BP 162/81
== END 2021-10-27 05:52 | disposition home or self-care (01) ==
LOC: ED 23:33
DX: S86.911A Strain of unspecified muscle(s) and tendon(s) at lower leg level, right leg, initial encounter (principal); S20.20XA Contusion of thorax, unspecified, initial encounter; S70.01XA Contusion of right hip, initial encounter; I10 Essential (primary) hypertension; E11.9 Type 2 diabetes mellitus without complications; X58.XXXA Exposure to other specified factors, initial encounter; Y93.89 Activity, other specified; Y92.89 Other specified places as the place of occurrence of the external cause; Y99.8 Other external cause status
CPT/HCPCS: 99283; J3490; Q0162

== ENCOUNTER 2022-01-29 01:22 | Emergency (ER) | payer MEDICAID ==
[2022-01-29 01:29] VITALS: BP 133/72
== END 2022-01-29 10:42 | disposition left against medical advice (07) ==
LOC: ED 01:22
DX: R73.9 Hyperglycemia, unspecified (principal); Z53.21 Procedure and treatment not carried out due to patient leaving prior to being seen by health care provider